=== PATIENT | female | born 1940 | race Caucasian/White ===

== ENCOUNTER → 2016-06-03 | Day surgery (SDC) | payer BC ==
[2016-05-20 08:01] VITALS: Ht 167.6 cm; Wt 77.3 kg
[~2016-06-03] VITALS: Ht 167.6 cm; Wt 77.3 kg
[~2016-06-03] MED LIST: 500ML BSS 0.3ML EPI 1:1000PF IRRIG ONE; ACETAMINOPHEN 325 MG TAB PO PRN; AMT25 PO; AMVISC PLUS 0.8ML SYRINGE INT OCU ONE; ASCO10003 PO; ASPI-589; ATROPINE SULFATE 0.1 MG/ML 5ML SYR IV PRN; BROM0.07 OPL; BSS FLUSH ONE; CALC200T PO; EpHEDrine SULFATE INJ 50 MG/ML AMP IV PRN; EpINEphrine INJ 1MG/ML AMP 1 MG/ML AMP ONE; GARL400T5 PO; LACTATED RINGER'S 1000ML 500 ML IV SCH; LIDOCAINE 3.5% OPH GEL PER APPLICATION CHARGE ONE; LIDOCAINE HCL 1% MPF 2 ML VIAL ONE; MAGNESIUM PO; MIDAZOLAM HCL 1 MG/ML 2ML VIAL ONE; MULT-506 PO; OCUCOAT 1 ML SOLN IO ONE; ONDANSETRON INJ 2 MG/ML 2 ML VIAL IV PRN; POVIDONE-IODINE OP SOLN 30 ML BTL ONE; PRED1SUS3 OPL; PROPARACAINE 0.5% OP SOLN PER DROP CHARGE OPL SCH; SELENIUM PO; TOBRAMYCIN/DEXAMETHASONE OPH OINT PER APPLN CHARGE ONE
[2016-06-03] MEDS: PHENYLEPHRINE HCL 2.5% OP SOLN PER DROP CHARGE OPL SCH ×2 (06:36→06:41)
[2016-06-03] MEDS: TROPICAMIDE 1% OP SOLN PER DROP CHARGE OPL SCH ×2 (06:37→06:42)
[2016-06-03] MEDS: CYCLOPENTOLATE HCL 1% OP SOLN PER DROP CHARGE OPL SCH ×2 (06:38→06:43)
[2016-06-03] MEDS: KETOROLAC 0.5% OP SOLN PER DROP CHARGE OPL SCH ×2 (06:39→06:44)
[2016-06-03] MEDS: GATIFLOXACIN OP SOLN PER DROP CHARGE OPL SCH ×2 (06:40→06:50)
--- NOTE | 2016-06-03 07:05 | History & Physical Bridge - [place] ---
H&P Re-Evaluation Bridge Note: I have examined the patient, reviewed the History & Physical and in the interval since the performance of the History & Physical I have noted the following changes of clinical significance: Diagnosis: Left Cataract Procedure: Left Cataract Removal with Lens Implant No changes noted
[2016-06-03 07:29] VITALS: TEMP 36
--- NOTE | 2016-06-03 07:29 | Discharge Instructions-SurgCtr ---
Discharge Instructions Visit Reason for Visit: Cataract Left Eye Discharge Discharge Diagnosis / Problem: cataract Discharge Goals Goal(s): Improve function Activity Recommendations Activity Limitations: per Instructions/Follow-up section Anesthesia . Post Anesthesia Instructions: If you have had General Anesthesia or IV Sedation: * Do not drive today. * Resume driving when surgeon permits. * Do not make important decisions or sign legal documents today. * Call surgeon for: 1. Temperature elevations greater than 101 degrees F. 2. Uncontrollable pain. 3. Excessive bleeding. 4. Persistent nausea and vomiting. 5. Medication intolerance (nausea, vomiting or rash). * For nausea and vomiting use only clear liquids such as: tea, soda, bouillon until nausea subsides, then gradually increase diet as tolerated. * If you have any concerns or questions, call your surgeon's office. If physician is unavailable and it is an emergency, call 911 or go to the nearest emergency room. . Instructions / Follow-Up Instructions / Follow-Up ACTIVITY RECOMMENDATIONS: * No strenuous lifting, jogging or running for 4 days * No swimming or yard work for 1 week. * Limited bending is permitted, such as putting on shoes. RETURN TO SCHOOL/WORK: No work until seen by physician in office. MEDICATIONS: Resume previous medications unless instructed otherwise by your surgeon. This includes eye drops for glaucoma. Zymaxid/Gatifloxacin (avendano cap) - one drop every 2 hours until bedtime Nevanac/Ilevro/Prolensa/Ketorolac (banks cap) - one drop every 4 hours until bedtime Prednisolone (white/pink cap, SHAKE WELL) - one drop every 2 hours until bedtime Starting tomorrow - all 3 drops every 4 hours until seen in the office Optive drops - as needed for discomfort SPECIAL CARE INSTRUCTIONS: * Wear eyeshield when sleeping, for four nights. * You may wear your own glasses or sunglasses while awake. * You may read or watch TV * You may shower and wash your face, but be gentle around the eye and pat dry. * Blurry vision and mild irritation are normal. * Call office if pain is more severe or vision becomes dark at . FOLLOW UP VISIT: Follow-up with Dr Nazario tomorrow. Diet Recommendations Home Diet: resume previous diet Procedures Procedures Performed: Left Cataract Phacoemulsification With Intraocular Lens Implant Pending Studies Studies pending at discharge: no Medical Emergencies . Who to Call and When: Medical Emergencies: If at any time you feel your situation is an emergency, please call 911 immediately. . Non-Emergent Contact Non-Emergency issues call your: Business Applications Specialist . . "Provider Documentation" section prepared by Diego Nazario.
--- NOTE | 2016-06-03 07:30 | [facility] Operative Report ---
Operative Report 1. PREOPERATIVE DIAGNOSIS: Cataract of the left eye. 2. POSTOPERATIVE DIAGNOSIS: Same. 3. PROCEDURE: Phacoemulsification with intraocular lens implantation of the left eye. SURGEON: Dr. Diego Nazario. ANESTHESIA: Topical Lidocaine gel, 1% Non- Preserved intracameral Lidocaine, and monitored intravenous sedation. INDICATIONS FOR THE PROCEDURE: The patient is a 76 - year-old female with a history of cataract of the left eye causing significant visual impairment. The details of the proposed procedure were explained to the patient who asked appropriate questions and following discussion of all risks, benefits and alternatives agreed to have the procedure done. 4. OPERATION AND FINDINGS: DESCRIPTION OF PROCEDURE: After informed consent was obtained, the patient was brought to the Operating Room at the [facility]. The patient was placed in a supine position and then the left eye was prepped and draped in the usual sterile fashion for intraocular surgery. A drop of topical Lidocaine gel was placed in the operative eye. A wire lid speculum was then placed in the fornices. A corneal paracentesis was then created temporally. The Non-Preserved Lidocaine was then instilled into the anterior chamber. The anterior chamber was then pressurized with viscoelastic. A 2.0 mm clear corneal incision was then created temporally. A cystotome was inserted into the anterior chamber and used to create a tear in the anterior lens capsule. This capsular tear was then used to create a small flap and the flap was dragged in a counterclockwise direction in order to create a continuous curvilinear capsulorrhexis. Hydrodissection was accomplished with balanced salt solution. Phacoemulsification of the lens nucleus was then performed in a standard [id number] technique. The phaco time was 47 seconds with an average power of 15 %. The remaining cortical material was removed using irrigation aspiration. The capsular bag was then filled with viscoelastic. A Bausch & Lomb MI60L +23.5 diopters lens was then loaded into the injector and injected into the capsular bag. The remaining viscoelastic was removed with the irrigation aspiration handpiece. The wound was hydrated and then checked and found to be watertight. The intraocular pressure was checked and found to be adequate. The wire lid speculum was removed and the patient's face was cleaned and dried. TobraDex ointment was placed in the inferior fornix. The patient was discharged to the Recovery Room having tolerated the procedure well. There were no complications. The patient will be seen tomorrow in the office for follow-up. I attest to the content of the Intraoperative Record and any orders documented therein. Any exceptions are noted below.
--- NOTE | 2016-06-03 07:50 | Anesthesia Progress Nt - [facility] ---
Anesthesia Post Op Note Date & Time Jun 03, 2016 at 07:49 Vital Signs Pain Intensity: 0 Vital Signs Past 12 Hours Date Time Temp Pulse Resp B/P Pulse Ox O2 Delivery O2 Flow Rate FiO2 06/03/16 07:29 36.0 70 16 156/84 95 Room Air 06/03/16 06:29 37.0 77 16 148/89 95 Room Air Notes Mental Status: alert / awake / arousable, participated in evaluation Pt Amnestic to Procedure: No Nausea / Vomiting: adequately controlled Pain: adequately controlled Airway Patency, RR, SpO2: stable & adequate BP & HR: stable & adequate Hydration State: stable & adequate Anesthetic Complications: no major complications apparent Non distressing recall as discussed preop
[2016-06-03 07:51] VITALS: BP 169/89; PULSE 77; O2SAT 96
== END | disposition home or self-care (01) ==
LOC: X.SURG 06:15
PROVIDERS: ATTEND Ophthalmology
DX: H26.9 Unspecified cataract (principal); M19.90 Unspecified osteoarthritis, unspecified site; N18.3 Chronic kidney disease, stage 3 (moderate); K21.9 Gastro-esophageal reflux disease without esophagitis; Z85.3 Personal history of malignant neoplasm of breast; Z88.5 Allergy status to narcotic agent; Z90.710 Acquired absence of both cervix and uterus; Z90.12 Acquired absence of left breast and nipple; Z79.82 Long term (current) use of aspirin; Z80.8 Family history of malignant neoplasm of other organs or systems; Z81.8 Family history of other mental and behavioral disorders

== ENCOUNTER → 2016-06-24 | Day surgery (SDC) | payer BC ==
[2016-06-11 14:51] VITALS: Ht 167.6 cm; Wt 77.3 kg
[~2016-06-24] VITALS: Ht 167.6 cm; Wt 77.3 kg
[~2016-06-24] MED LIST changes: -ONDANSETRON INJ 2 MG/ML 2 ML VIAL IV PRN; -PROPARACAINE 0.5% OP SOLN PER DROP CHARGE OPL SCH; +PROPARACAINE 0.5% OP SOLN PER DROP CHARGE OPR SCH
[2016-06-24] MEDS: PHENYLEPHRINE HCL 2.5% OP SOLN PER DROP CHARGE OPR SCH ×2 (09:20→09:25)
[2016-06-24] MEDS: TROPICAMIDE 1% OP SOLN PER DROP CHARGE OPR SCH ×2 (09:21→09:26)
[2016-06-24] MEDS: CYCLOPENTOLATE HCL 1% OP SOLN PER DROP CHARGE OPR SCH ×2 (09:22→09:27)
[2016-06-24] MEDS: KETOROLAC 0.5% OP SOLN PER DROP CHARGE OPR SCH ×2 (09:23→09:28)
[2016-06-24] MEDS: GATIFLOXACIN OP SOLN PER DROP CHARGE OPR SCH ×2 (09:24→09:34)
--- NOTE | 2016-06-24 09:57 | History & Physical Bridge - [place] ---
H&P Re-Evaluation Bridge Note: I have examined the patient, reviewed the History & Physical and in the interval since the performance of the History & Physical I have noted the following changes of clinical significance: No changes noted
--- NOTE | 2016-06-24 10:29 | Discharge Instructions-SurgCtr ---
Discharge Instructions Visit Reason for Visit: Right Cataract Discharge Discharge Diagnosis / Problem: cataract Discharge Goals Goal(s): Improve function Activity Recommendations Activity Limitations: per Instructions/Follow-up section Anesthesia . Post Anesthesia Instructions: If you have had General Anesthesia or IV Sedation: * Do not drive today. * Resume driving when surgeon permits. * Do not make important decisions or sign legal documents today. * Call surgeon for: 1. Temperature elevations greater than 101 degrees F. 2. Uncontrollable pain. 3. Excessive bleeding. 4. Persistent nausea and vomiting. 5. Medication intolerance (nausea, vomiting or rash). * For nausea and vomiting use only clear liquids such as: tea, soda, bouillon until nausea subsides, then gradually increase diet as tolerated. * If you have any concerns or questions, call your surgeon's office. If physician is unavailable and it is an emergency, call 911 or go to the nearest emergency room. . Instructions / Follow-Up Instructions / Follow-Up ACTIVITY RECOMMENDATIONS: * No strenuous lifting, jogging or running for 4 days * No swimming or yard work for 1 week. * Limited bending is permitted, such as putting on shoes. RETURN TO SCHOOL/WORK: No work until seen by physician in office. MEDICATIONS: Resume previous medications unless instructed otherwise by your surgeon. This includes eye drops for glaucoma. Zymaxid/Gatifloxacin (avendano cap) - one drop every 2 hours until bedtime Nevanac/Ilevro/Prolensa/Ketorolac (banks cap) - one drop every 4 hours until bedtime Prednisolone (white/pink cap, SHAKE WELL) - one drop every 2 hours until bedtime Starting tomorrow - all 3 drops every 4 hours until seen in the office Optive drops - as needed for discomfort SPECIAL CARE INSTRUCTIONS: * Wear eyeshield when sleeping, for four nights. * You may wear your own glasses or sunglasses while awake. * You may read or watch TV * You may shower and wash your face, but be gentle around the eye and pat dry. * Blurry vision and mild irritation are normal. * Call office if pain is more severe or vision becomes dark at . FOLLOW UP VISIT: Follow-up with Dr Nazario tomorrow. Diet Recommendations Home Diet: resume previous diet Procedures Procedures Performed: Right Eye Cataract Phacoemulsification With Intraocular Lens Implant Pending Studies Studies pending at discharge: no Medical Emergencies . Who to Call and When: Medical Emergencies: If at any time you feel your situation is an emergency, please call 911 immediately. . Non-Emergent Contact Non-Emergency issues call your: Internal Control Specialist . . "Provider Documentation" section prepared by Diego Nazario.
[2016-06-24 10:30] VITALS: TEMP 36.6
--- NOTE | 2016-06-24 10:30 | [facility] Operative Report ---
Operative Report 1. PREOPERATIVE DIAGNOSIS: Cataract of the right eye. 2. POSTOPERATIVE DIAGNOSIS: Same. 3. PROCEDURE: Phacoemulsification with intraocular lens implantation of the right eye. SURGEON: Dr. Diego Nazario. ANESTHESIA: Topical Lidocaine gel, 1% Non- Preserved intracameral Lidocaine, and monitored intravenous sedation. INDICATIONS FOR THE PROCEDURE: The patient is a 76 - year-old female with a history of cataract of the right eye causing significant visual impairment. The details of the proposed procedure were explained to the patient who asked appropriate questions and following discussion of all risks, benefits and alternatives agreed to have the procedure done. 4. OPERATION AND FINDINGS: DESCRIPTION OF PROCEDURE: After informed consent was obtained, the patient was brought to the Operating Room at the [facility]. The patient was placed in a supine position and then the right eye was prepped and draped in the usual sterile fashion for intraocular surgery. A drop of topical Lidocaine gel was placed in the operative eye. A wire lid speculum was then placed in the fornices. A corneal paracentesis was then created temporally. The Non-Preserved Lidocaine was then instilled into the anterior chamber. The anterior chamber was then pressurized with viscoelastic. A 2.0 mm clear corneal incision was then created temporally. A cystotome was inserted into the anterior chamber and used to create a tear in the anterior lens capsule. This capsular tear was then used to create a small flap and the flap was dragged in a counterclockwise direction in order to create a continuous curvilinear capsulorrhexis. Hydrodissection was accomplished with balanced salt solution. Phacoemulsification of the lens nucleus was then performed in a standard [id number] technique. The phaco time was 46 seconds with an average power of 17 %. The remaining cortical material was removed using irrigation aspiration. The capsular bag was then filled with viscoelastic. A Bausch & Lomb MI60L +23.5 diopters lens was then loaded into the injector and injected into the capsular bag. The remaining viscoelastic was removed with the irrigation aspiration handpiece. The wound was hydrated and then checked and found to be watertight. The intraocular pressure was checked and found to be adequate. The wire lid speculum was removed and the patient's face was cleaned and dried. TobraDex ointment was placed in the inferior fornix. The patient was discharged to the Recovery Room having tolerated the procedure well. There were no complications. The patient will be seen tomorrow in the office for follow-up. I attest to the content of the Intraoperative Record and any orders documented therein. Any exceptions are noted below.
[2016-06-24 10:45] VITALS: BP 160/88; PULSE 74; O2SAT 97
--- NOTE | 2016-06-24 11:08 | Anesthesia Progress Nt - [facility] ---
Anesthesia Post Op Note Date & Time Jun 24, 2016 at 11:07 Vital Signs Pain Intensity: 0 Vital Signs Past 12 Hours Date Time Temp Pulse Resp B/P Pulse Ox O2 Delivery O2 Flow Rate FiO2 06/24/16 10:45 74 16 160/88 97 Room Air 06/24/16 10:30 36.6 76 16 154/90 96 Room Air 06/24/16 09:10 36.8 88 12 137/83 95 Room Air Notes Mental Status: alert / awake / arousable, participated in evaluation Pt Amnestic to Procedure: Yes Nausea / Vomiting: adequately controlled Pain: adequately controlled Airway Patency, RR, SpO2: stable & adequate BP & HR: stable & adequate Hydration State: stable & adequate Anesthetic Complications: no major complications apparent
== END | disposition home or self-care (01) ==
LOC: X.SURG 08:29
PROVIDERS: ATTEND Ophthalmology
DX: H26.9 Unspecified cataract (principal); H54.7 Unspecified visual loss; G43.009 Migraine without aura, not intractable, without status migrainosus; H69.80 Other specified disorders of Eustachian tube, unspecified ear; G63 Polyneuropathy in diseases classified elsewhere; K21.9 Gastro-esophageal reflux disease without esophagitis; N18.3 Chronic kidney disease, stage 3 (moderate); I65.29 Occlusion and stenosis of unspecified carotid artery; Z90.10 Acquired absence of unspecified breast and nipple; Z79.82 Long term (current) use of aspirin

== ENCOUNTER 2018-08-14 18:26 | Inpatient (IN) ==
--- NOTE | 2018-08-14 19:02 | Emergency Department Note ---
Entered by Vj Larry acting as a scribe for Octaviano Millan MD History of Present Illness General Chief complaint: Vertigo Stated complaint: DIZZYNESS Time Seen by Provider: 08/14/18 18:37 Source: patient History of Present Illness Onset (ago): day(s) (this morning at 1000) Location: head Pain Consistency: + constant Quality: + other (dizziness) Associated symptoms: + other (Negative for visual changes, CP, numbness, weakness, heart racing, SOB, dyspnea, abdominal pain, black stool, urinary symptoms, fever, and ear ringing.) The patient is a 78 year old female who presents to the emergency department with complaints of constant dizziness beginning this morning at 1000. The patient states that she was doing yoga this morning when she stood up and became dizzy. She notes that she had a similar episode that happened yesterday. She reports that she felt as though she could not stand or walk without holding the wall. The patient states that it did not feel like the room was spinning. She notes that she went to [facility] urgent care and was told that she had some EKG changes. She denies any visual changes, CP, numbness, weakness, heart racing, SOB, dyspnea, abdominal pain, black stool, urinary symptoms, fever, ear ringing, and recent trauma. She reports that she has a history of breast cancer but does not have a history of diabetes, cardiac disease, strokes, and abdominal bleeding. Home Medications Home Medications Medication Instructions Recorded Confirmed Type amitriptyline 50 mg PO HS 08/14/18 08/14/18 History ascorbic acid (vitamin C) [Vitamin 1,000 mg PO BID 08/14/18 08/14/18 History C] aspirin [Aspir-Low] 81 mg PO HS 08/14/18 08/14/18 History calcium carbonate-vitamin D3 1 tab PO HS 08/14/18 08/14/18 History [Calcium 500 + D (D3)] garlic 0 mg PO HS 08/14/18 08/14/18 History loteprednol etabonate [Lotemax] 1 drp OPB BID 08/14/18 08/14/18 History magnesium oxide 400 mg PO HS 08/14/18 08/14/18 History multivitamin 1 tab PO QAM 08/14/18 08/14/18 History selenium 0 mcg PO DAILY 08/14/18 08/14/18 History Allergies Allergy/AdvReac Type Severity Reaction Status Date / Time bacitracin Allergy Unknown SWELLING Verified 06/24/16 09:06 AT SITE neomycin Allergy Unknown SWELLING Verified 06/24/16 09:06 AT SITE polymyxin B Allergy Unknown SWELLING Verified 06/24/16 09:06 AT SITE morphine AdvReac Unknown HEADACHE Verified 06/24/16 10:30 Past Med/Surg History Medical History Degenerative joint disease (DJD) of hip (Acute 03/31/14) Breast cancer Family History Other No significant family history Social History Preferred Language: Honduran Communication Ability: Effective Paper Machine Back Tender Required: No Beliefs That Will Affect Care: None Current Living Situation: Alone Other Information That Helps Us Care for You: No Feels Safe at Home: Yes Safety Concerns: Feels Safe At This Time Smoking Status: Never smoker Hx Alcohol Use: Yes Hx Substance Use: No Review of Systems See HPI for pertinent positives & negatives. and A total of 10 systems reviewed and were otherwise negative Physical Exam Vital Signs Vital Signs - 24 hr 08/14/18 18:29 08/14/18 19:13 08/14/18 19:48 Temperature 36.5 C Temperature Source Oral Sepsis Recent Fever Within 48 Hours No Sepsis New/Unexplained Change in Mental Status No Sepsis Action Taken by Nursing No Action Required Pulse Rate 81 Pulse Rate [Right Finger] 85 91 H Respiratory Rate 16 18 18 Respiratory Effort / Characteristics Non-Labored Spontaneous Non-Labored Spontaneous Respiratory Depth Normal Normal Respiratory Pattern Blood Pressure 133/71 Blood Pressure [Right Arm] 109/62 186/109 H Blood Pressure Mean 91 Blood Pressure Mean [Right Arm] 77 134 Blood Pressure Position [Right Arm] Pulse Oximetry 97 92 92 Oxygen Delivery Method Room Air 08/14/18 21:05 08/14/18 23:08 08/15/18 00:38 Temperature 36.5 C Temperature Source Oral Sepsis Recent Fever Within 48 Hours Sepsis New/Unexplained Change in Mental Status Sepsis Action Taken by Nursing Pulse Rate Pulse Rate [Right Finger] 83 87 96 H Respiratory Rate 18 16 16 Respiratory Effort / Characteristics Non-Labored Spontaneous Non-Labored Spontaneous Non-Labored Spontaneous Respiratory Depth Normal Normal Normal Respiratory Pattern Regular Regular Blood Pressure Blood Pressure [Right Arm] 178/88 H 169/96 H 159/90 H Blood Pressure Mean Blood Pressure Mean [Right Arm] 118 120 113 Blood Pressure Position [Right Arm] Sitting Sitting Pulse Oximetry 93 93 95 Oxygen Delivery Method Room Air Room Air General: Non-ill appearing 78 year old female in no acute distress. HEENT: Normal cephalic atraumatic. Pupils are equal round and reactive to light. Extraocular movements are intact. Oropharynx is pink with moist mucous membranes. No swelling of the mouth lips or tongue. Neck: Supple with a midline trachea. No meningeal signs or stiffness, no JVD or bruits. No Stridor. Chest: Clear to auscultation bilaterally. No wheezes or rhonchi. No increased work of breathing. Heart: regular rate and rhythm. Abdomen: Soft nontender, nondistended without rebound guarding or rigidity. Extremities: No cyanosis clubbing or edema. No calf tenderness or asymmetry Spine/Back. Non tender to palpation. No CVA tenderness Skin: Good turgor without rashes. Neurologic exam: Cranial nerves two through 12 are intact. Motor and sensation are intact and symmetrical throughout. Finger to nose intact, no tremor, no pronator drift, normal gait, negative Romberg, difficulty with heel to toe gait. Course 1838: Past medical records reviewed. The patient was evaluated in room A10, and a complete history and physical examination were performed. 1932: I reevaluated and updated the patient. She appears comfortable. She just got back from CT. 2017: Upon reevaluation, the patient is stable. I discussed the results and treatment plan with the patient. She verbalizes understanding and agreement. I discussed the patient's case with Alpa Prasad. The patient will be evaluated for further management and care. Consultations Consultation #1: I reviewed the patient's case with Alpa Prasad. He will evaluate the patient for further management. Time: 20:17 Administered Medications Ioversol (Optiray 320 125ml) 121 ml IV ONCE PRN PRN Reason: Interaction Checking Stop: 08/18/18 19:37 Last Admin: 08/14/18 19:39 Dose: 121 ml Documented by: [id number] Discontinued Medications Clopidogrel Bisulfate (Plavix) 75 mg PO NOW ONE Stop: 08/14/18 21:12 Last Admin: 08/14/18 21:21 Dose: 75 mg Documented by: [id number] Potassium Chloride (Klor-Con M20) 20 meq PO NOW STA Stop: 08/14/18 20:54 Last Admin: 08/14/18 21:21 Dose: 20 meq Documented by: [id number] Medical Decision Making Differential Diagnosis Differential diagnoses include: CVA, orthostatic hypotension, electrolyte/metabolic abnormalities, and cardiac process. Medical Records Attestation: I reviewed the patient's medical records. Home Medications Current Medication List: was personally reviewed by me Laboratory Data Attestation: I reviewed the patient's lab results. Result diagrams: 08/14/18 18:40 08/14/18 18:40 Lab Results 08/14/18 08/14/18 08/14/18 Range/Units 18:40 18:40 18:40 WBC 6.60 (4.8-10.8) K/uL RBC 4.56 (4.2-5.4) M/uL Hgb 14.5 (12.0-16.0) g/dL POC Hgb (12.0-16.0) g/dl Hct 41.7 (37-47) % POC Hct (37-47) % MCV 91.4 (80-100) fL MCH 31.8 (25-34) pg MCHC 34.8 (32-36) g/dL RDW Std Deviation 43.5 (36.4-46.3) fL RDW Coeff of Frannie 13.0 (11.5-14.5) % Plt Count 290 (130-400) K/uL MPV 10.4 (7.4-10.4) fL Immature Gran % (Auto) 0.2 % Neut % (Auto) 76.0 % Lymph % (Auto) 14.4 % [place] % (Auto) 8.5 % Eos % (Auto) 0.6 % Baso % (Auto) 0.3 % Immature Gran # (Auto) 0.01 (0.00-0.02) K/uL Neut # (Auto) 5.02 (1.4-6.5) K/uL Lymph # (Auto) 0.95 L (1.2-3.4) K/uL [place] # (Auto) 0.56 (0.11-0.59) K/uL Eos # (Auto) 0.04 (0-0.5) K/uL Baso # (Auto) 0.02 (0-0.2) K/uL PT 9.9 (9.0-12.0) Seconds INR 1.0 (0.9-1.1) APTT 23.3 (21.0-31.0) Seconds PTT Ratio 0.9 POC Sodium (135-144) mEq/L Sodium 141 (136-145) mmol/L POC Potassium (3.3-5.0) mEq/L Potassium 3.4 L (3.5-5.1) mmol/L POC Chloride (101-112) mEq/L Chloride 104 (98-107) mmol/L Carbon Dioxide 31 (21-32) mmol/L POC Total CO2 (24-31) mEq/l Anion Gap 6.0 (3-11) POC Anion Gap (16-25) mmol/L POC BUN (7-18) mg/dl BUN 10 (7-18) mg/dl Creatinine 0.95 (0.6-1.2) mg/dl POC Creatinine (0.6-1.3) mg/dl Est Cr Clr Drug Dosing Not Reportable Est GFR ( Amer) 67.0 Est GFR (Non-Af Amer) 57.8 BUN/Creatinine Ratio 10.9 (10-20) Glucose 117 H (70-99) mg/dl POC Glucose (70-99) POC Glucose (other) (70-99) mg/dl Calcium 9.1 (8.5-10.1) mg/dl POC Ioniz Calcium Aaron (1.12-1.32) mmol/l Magnesium 2.3 (1.8-2.4) mg/dl Total Bilirubin 0.6 (0.2-1) mg/dl AST 26 (15-37) U/L ALT 37 (12-78) U/L Alkaline Phosphatase 103 (45-117) U/L Troponin I < 0.015 (0-0.045) ng/ml Total Protein 7.6 (6.4-8.2) gm/dl Albumin 3.8 (3.4-5.0) gm/dl Globulin 3.8 (2.5-4.0) gm/dl Albumin/Globulin Ratio 1.0 (0.9-2) TSH 2.070 (0.300-4.500) uIu/ml 08/14/18 08/14/18 08/14/18 Range/Units 18:40 18:55 19:01 WBC (4.8-10.8) K/uL RBC (4.2-5.4) M/uL Hgb (12.0-16.0) g/dL POC Hgb 15.0 (12.0-16.0) g/dl Hct (37-47) % POC Hct 44 (37-47) % MCV (80-100) fL MCH (25-34) pg MCHC (32-36) g/dL RDW Std Deviation (36.4-46.3) fL RDW Coeff of Frannie (11.5-14.5) % Plt Count (130-400) K/uL MPV (7.4-10.4) fL Immature Gran % (Auto) % Neut % (Auto) % Lymph % (Auto) % [place] % (Auto) % Eos % (Auto) % Baso % (Auto) % Immature Gran # (Auto) (0.00-0.02) K/uL Neut # (Auto) (1.4-6.5) K/uL Lymph # (Auto) (1.2-3.4) K/uL [place] # (Auto) (0.11-0.59) K/uL Eos # (Auto) (0-0.5) K/uL Baso # (Auto) (0-0.2) K/uL PT (9.0-12.0) Seconds INR (0.9-1.1) APTT (21.0-31.0) Seconds PTT Ratio POC Sodium 141 (135-144) mEq/L Sodium (136-145) mmol/L POC Potassium 3.5 (3.3-5.0) mEq/L Potassium (3.5-5.1) mmol/L POC Chloride 99 L (101-112) mEq/L Chloride (98-107) mmol/L Carbon Dioxide (21-32) mmol/L POC Total CO2 29 (24-31) mEq/l Anion Gap (3-11) POC Anion Gap 17.0 (16-25) mmol/L POC BUN 10 (7-18) mg/dl BUN (7-18) mg/dl Creatinine (0.6-1.2) mg/dl POC Creatinine 0.8 (0.6-1.3) mg/dl Est Cr Clr Drug Dosing Est GFR ( Amer) Est GFR (Non-Af Amer) BUN/Creatinine Ratio (10-20) Glucose (70-99) mg/dl POC Glucose 108 H (70-99) POC Glucose (other) 119 H (70-99) mg/dl Calcium (8.5-10.1) mg/dl POC Ioniz Calcium Aaron 1.18 (1.12-1.32) mmol/l Magnesium (1.8-2.4) mg/dl Total Bilirubin (0.2-1) mg/dl AST (15-37) U/L ALT (12-78) U/L Alkaline Phosphatase (45-117) U/L Troponin I (0-0.045) ng/ml Total Protein (6.4-8.2) gm/dl Albumin (3.4-5.0) gm/dl Globulin (2.5-4.0) gm/dl Albumin/Globulin Ratio (0.9-2) TSH Cancelled (0.300-4.500) uIu/ml Imaging Data Radiologist's Impression: Radiology results as stated below per my review and the radiologist's interpretation: CT ANGIOGRAM OF THE BRAIN COMBO; CT ANGIOGRAM OF THE NECK FINDINGS: Brain parenchyma: There is age-related involutional change noting mild subcortical and periventricular microangiopathic disease. There is no hemorrhage, mass effect, or evidence of acute territorial ischemia by CT criteria. There is no evidence of enhancing mass lesion on the angiogram phase i mages. The ventricles, sulci, and cisterns are prominent secondary to involutional change. Cedeno-white matter differentiation is preserved. No extra- axial fluid collection is seen. Thoracic aorta: There is atherosclerotic calcification of the thoracic aorta. Visualized portions of the thoracic aorta are normal in caliber. The aortic arch demonstrates standard 3-vessel anatomy. Right carotid arterial system: The right common carotid artery is widely patent, as are the right internal and external carotid arteries. Mild atherosclerotic plaque is noted in the carotid bulb. There is tortuosity of the distal right internal carotid artery. Left carotid arterial system: The left common carotid artery is widely patent, as are the left internal and external carotid arteries. There is tortuosity of the distal left internal carotid artery. Vertebral arteries: Widely patent bilaterally and codominant. Subclavian arteries: Widely patent bilaterally. Intracranial vasculature: There is mild atherosclerotic calcification of the cavernous carotid arteries. There is origin of the right posterior cerebral artery. The internal carotid arteries are patent at the skull base. There is approximately 50% focal stenosis of the M1 segment of the right middle cerebral artery. This is best seen on axial image #103. The anterior and middle cerebral arteries are otherwise patent bilaterally. The vertebrobasilar system and posterior cerebral arteries are widely patent. The vertebral arteries are c odominant. There is no aneurysm or focal vessel cut off seen throughout the intracranial circulation. Jugular veins: Widely patent bilaterally. Dural sinuses: Patent. Lung apices: Apical scarring is noted. Imaged upper lobe lung parenchyma is otherwise clear. Soft tissues: The visualized pharyngeal soft tissues are normal in appearance noting angiographic phase technique. The oropharyngeal airway appears widely patent. The salivary and thyroid glands are normal in appearance. No cervical lymphadenopathy is seen. Skeletal structures: The skeletal structures are osteopenic. The calvarium ap pears intact. The cervical spine is maintained noting multilevel spondylosis. No lytic or blastic lesion is seen. Bone islands are noted in the bodies of T4 and T5. Orbits: The bony orbits are intact. Orbital contents are normal in appearance noting bilateral ocular lens implants. Sinuses and mastoids: There is trace mucosal thickening within the right maxillary antrum. The remaining paranasal sinuses are clear. The mastoid air cells are well pneumatized. IMPRESSION: 1. There is no hemorrhage, mass effect, or evidence of acute territorial ischemia by CT criteria. 2. 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 3. Otherwise unremarkable CT angiogram of the brain. 4. Unremarkable CT angiogram of the neck. Electronically signed by: Perez Mace M.D. 08/14/2018 7:52 PM ECG Data Attestation: I personally reviewed and interpreted this ECG as follows: Indication: weakness Rate (beats per minute): 88 Rhythm: normal sinus Findings: + RBBB; no PAC and no PVC Comparison ECG Date: from (02/21/2018) Change: the following changes noted (QRS is slightly longer) Additional Comments: Left anterior fascicular block. Blood Pressure Blood Pressure Findings: Elevated blood pressure Blood Pressure Disposition: further management by hospitalist [facility] Narrative This patient comes in as described above she felt dizzy after standing up this morning around 8:00 while doing some yoga. She felt off balance like she had trouble walking and needed to hold onto things. This has gotten significantly better. she has no symptoms at rest but when she gets up she still does feel little off balance. There has been no spinning or vertigo. her neurologic exam is normal with exception of she has difficulty doing heel-to-toe gait. She has had no fall or trauma no chest pain or shortness of breath. no fever chills or recent illness. IV access established and blood work was obtained. I did use the stroke order set as there is concern for possible neurologic process. She is well outside the TPA window and is approximately 11 hours out from her symptoms plus they have gotten significantly better. I did order CAT scan with CT of the head and neck. She was hydrated with IV normal saline. CAT scan/CT of the head and neck do not show any definite acute abnormalities she does have a stenosis of 1 of the branches of MCA that is 50%. She has no definite acute EKG changes she has no chest pain or palpitations. Her troponin is not elevated. Given my concern for her ambulatory function I do think she needs to be admitted/observed have a full neurologic workup and further evaluation of consult Dr. Phillips to see her in the ER for these measures. Impression & Plan Ataxia, Dizziness Discharge Plan Visit Data *Final* Discharge Date/Time: 08/14/18 23:21 Chief Complaint: Vertigo Stated Complaint: DIZZYNESS ED Provider: Octaviano Millan Discharge Problem: Ataxia, Dizziness Patient Disposition: Admitted As Inpatient Discharge Instructions Interventions: ED Discharge Assessment Last Done: 08/14/18 23:21 The scribe's documentation has been prepared under my direction and personally reviewed by me in its entirety. I confirm that the note above accurately reflects all work, treatment, procedures, and medical decision making performed by me.
[2018-08-14 19:05] LABS: Basophils # (auto) 0.02 K/uL (0-0.2); Basophils % (auto) 0.3 %; Eosinophils # (auto) 0.04 K/uL (0-0.5); Eosinophils % (auto) 0.6 %; Hematocrit (blood only) 41.7 % (37-47); Hemoglobin 14.5 g/dL (12.0-16.0); Immature Granulocytes # (auto) 0.01 K/uL (0.00-0.02); Immature Granulocytes % (auto) 0.2 %; Lymphocytes # (auto) 0.95 K/uL (1.2-3.4); Lymphocytes % (auto) 14.4 %; Mean Corpuscular Hgb Conc 34.8 g/dL (32-36); Mean Corpuscular Volume 91.4 fL (80-100); Mean Platelet Volume 10.4 fL (7.4-10.4); Monocytes # (auto) 0.56 K/uL (0.11-0.59); Monocytes % (auto) 8.5 %; Neutrophils # (auto) 5.02 K/uL (1.4-6.5); Platelet Count 290 K/uL (130-400); RDW Standard Deviation 43.5 fL (36.4-46.3); Red Blood Count 4.56 M/uL (4.2-5.4)
[2018-08-14 19:13] LABS: Alanine Aminotransferase 37 U/L (12-78); Albumin Level 3.8 gm/dl (3.4-5.0); Aspartate Aminotransferase 26 U/L (15-37); BUN Creatinine Ratio 10.9 (10-20); Blood Urea Nitrogen 10 mg/dl (7-18); Calcium 9.1 mg/dl (8.5-10.1); Carbon Dioxide 31 mmol/L (21-32); Chloride 104 mmol/L (98-107); Est GFR (Non-African American) 57.8; Glucose 117 mg/dl (70-99); Magnesium 2.3 mg/dl (1.8-2.4); Potassium 3.4 mmol/L (3.5-5.1); Sodium 141 mmol/L (136-145)
[2018-08-14 19:15] LABS: iSTAT Creatinine 0.8 mg/dl (0.6-1.3); iSTAT Ionized Calcium 1.18 mmol/l (1.12-1.32); iSTAT Potassium 3.5 mEq/L (3.3-5.0)
[2018-08-14 19:18] LABS: Alkaline Phosphatase 103 U/L (45-117); Bilirubin,Total 0.6 mg/dl (0.2-1); Globulin 3.8 gm/dl (2.5-4.0); Partial Thromboplastin Ratio 0.9; Partial Thromboplastin Time 23.3 Seconds (21.0-31.0); Prothrombin Time 9.9 Seconds (9.0-12.0); Total Protein 7.6 gm/dl (6.4-8.2); Troponin I < 0.015 ng/ml (0-0.045)
[2018-08-14] MEDS ORDERED: OPTIRAY 320 125ml IV PRN (19:38)
--- NOTE | 2018-08-14 19:54 | CT Scan Report ---
CT ANGIOGRAM OF THE BRAIN COMBO; CT ANGIOGRAM OF THE NECK CLINICAL HISTORY: Ataxia. Dizziness. COMPARISON STUDY: No priors. TECHNIQUE: Unenhanced axial CT scan of the brain is performed. Subsequently, following the IV adminis tration of 121 of Optiray 320, CT angiogram of the head and neck was performed from the aortic arch t o the vertex. Images are reviewed in the axial, sagittal, and coronal planes. 3-D MIPS images are cre ated and assessed. IV contrast was administered without complication. All measurements were calculate d based on NASCET criteria. A dose lowering technique was utilized adhering to the principles of ALA RA. CT DOSE: 1247.47 mGy.cm FINDINGS: Brain parenchyma: There is age-related involutional change noting mild subcortical and periventricula r microangiopathic disease. There is no hemorrhage, mass effect, or evidence of acute territorial isc hemia by CT criteria. There is no evidence of enhancing mass lesion on the angiogram phase images. Th e ventricles, sulci, and cisterns are prominent secondary to involutional change. Cedeno-white matter d ifferentiation is preserved. No extra-axial fluid collection is seen. Thoracic aorta: There is atherosclerotic calcification of the thoracic aorta. Visualized portions of the thoracic aorta are normal in caliber. The aortic arch demonstrates standard 3-vessel anatomy. Right carotid arterial system: The right common carotid artery is widely patent, as are the right int ernal and external carotid arteries. Mild atherosclerotic plaque is noted in the carotid bulb. There is tortuosity of the distal right internal carotid artery. Left carotid arterial system: The left common carotid artery is widely patent, as are the left internal medicine hospitalist al and external carotid arteries. There is tortuosity of the distal left internal carotid artery. Vertebral arteries: Widely patent bilaterally and codominant. Subclavian arteries: Widely patent bilaterally. Intracranial vasculature: There is mild atherosclerotic calcification of the cavernous carotid arteri es. There is origin of the right posterior cerebral artery. The internal carotid arteries are p atent at the skull base. There is approximately 50% focal stenosis of the M1 segment of the right mid dle cerebral artery. This is best seen on axial image #103. The anterior and middle cerebral arteries are otherwise patent bilaterally. The vertebrobasilar system and posterior cerebral arteries are wid radha patent. The vertebral arteries are codominant. There is no aneurysm or focal vessel cut off seen throughout the intracranial circulation. Jugular veins: Widely patent bilaterally. Dural sinuses: Patent. Lung apices: Apical scarring is noted. Imaged upper lobe lung parenchyma is otherwise clear. Soft tissues: The visualized pharyngeal soft tissues are normal in appearance noting angiographic pha se technique. The oropharyngeal airway appears widely patent. The salivary and thyroid glands are nor mal in appearance. No cervical lymphadenopathy is seen. Skeletal structures: The skeletal structures are osteopenic. The calvarium appears intact. The cervic al spine is maintained noting multilevel spondylosis. No lytic or blastic lesion is seen. Bone island s are noted in the bodies of T4 and T5. Orbits: The bony orbits are intact. Orbital contents are normal in appearance noting bilateral ocular lens implants. Sinuses and mastoids: There is trace mucosal thickening within the right maxillary antrum. The remain ing paranasal sinuses are clear. The mastoid air cells are well pneumatized. IMPRESSION: 1. There is no hemorrhage, mass effect, or evidence of acute territorial ischemia by CT criteria. 2. 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 3. Otherwise unremarkable CT angiogram of the brain. 4. Unremarkable CT angiogram of the neck. Electronically signed by: Perez Mace M.D. 08/14/2018 7:52 PM
[2018-08-14] MEDS ORDERED: POTASSIUM CHLORIDE 20 MEQ TABCR PO STA (20:53)
[2018-08-14] MEDS ORDERED: CLOPIDOGREL BISULFATE 75 MG TAB PO ONE (21:11)
[2018-08-14] MEDS ORDERED: LISINOPRIL 2.5 MG TAB PO ONE (21:15)
--- NOTE | 2018-08-14 22:50 | History & Physical Report ---
Date of Service August 14, 2018 Assessment & Plan (1) Imbalance: Gait imbalance Rule out posterior CVA HTN, elevated secondary to cerebral ischemia No previous diagnosis of HTN BP elevation possibly chronic given LVH on EKG breast cancer left status post surgery, chemoradiation endometrial hyperplasia status post hysterectomy hyperlipidemia as per records PVD as per records Prediabetes as per records OBS Medical telemetry Neurochecks Add Plavix to aspirin for possible aspirin failure MRI/MRA brain RE gait imbalance permissive hypertension until acute stroke ruled out Initiate low-dose lisinopril if SBP greater than 180 Neurology consult RE gait imbalance PT OT eval Update hemoglobin A1c DVT prophylaxis. Lovenox subcu Full code History of Present Illness Chief Complaint: Dizziness Primary Care Provider: Apolonia Cole MD History obtained from patient, family, and records. Medical history significant for breast cancer left status post surgery, chemoradiation, endometrial hyperplasia status post hysterectomy, hyperlipidemia, PVD, GERD as per records. This morning patient noted dizziness symptoms described as feeling imbalanced after doing yoga, no chest pain, no S OB. Short-lived episode yesterday.No chest pain, no S OB, no headache. 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, Allergies Allergy/AdvReac Type Severity Reaction Status Date / Time bacitracin Allergy Unknown SWELLING Verified 06/24/16 09:06 AT SITE neomycin Allergy Unknown SWELLING Verified 06/24/16 09:06 AT SITE polymyxin B Allergy Unknown SWELLING Verified 06/24/16 09:06 AT SITE morphine AdvReac Unknown HEADACHE Verified 06/24/16 10:30 Home Medications Home Medications Medication Instructions Recorded Confirmed Type amitriptyline 50 mg PO HS 08/14/18 08/14/18 History ascorbic acid (vitamin C) [Vitamin 1,000 mg PO BID 08/14/18 08/14/18 History C] aspirin [Aspir-Low] 81 mg PO HS 08/14/18 08/14/18 History calcium carbonate-vitamin D3 1 tab PO HS 08/14/18 08/14/18 History [Calcium 500 + D (D3)] garlic 0 mg PO HS 08/14/18 08/14/18 History loteprednol etabonate [Lotemax] 1 drp OPB BID 08/14/18 08/14/18 History magnesium oxide 400 mg PO HS 08/14/18 08/14/18 History multivitamin 1 tab PO QAM 08/14/18 08/14/18 History selenium 0 mcg PO DAILY 08/14/18 08/14/18 History Past Med/Surg History Medical History Degenerative joint disease (DJD) of hip (Acute 03/31/14) Breast cancer Family History Other No significant family history Social History Communication Ability: Effective Beliefs That Will Affect Care: None Current Living Situation: Alone Other Information That Helps Us Care for You: No Feels Safe at Home: Yes Safety Concerns: Feels Safe At This Time Smoking Status: Never smoker Hx Alcohol Use: Yes Hx Substance Use: No Review of Systems As per HPI, all 10 systems reviewed, all other ROS negative Physical Exam Vital Signs (Past 24 Hours): Last Vital Signs Temp 36.5 C 08/14/18 18:29 Pulse 83 08/14/18 21:05 Resp 18 08/14/18 21:05 BP 178/88 H 08/14/18 21:05 Pulse Ox 93 08/14/18 21:05 Physical Exam: GENERAL: Comfortable, pleasant, looks younger for stated age, no respiratory distress SKIN: Normal color, warm HEENT: [place] palpebral conjunctivae, no ptosis, dry buccal mucosa NECK : Supple, no tenderness CHEST : CTA, no tenderness HEART : RRR, no obvious murmurs ABDOMEN: Some distention, nontender EXTREMITIES : No LE swelling/tenderness, no other conspicuous deformities noted NEUROLOGIC : Coherent, no facial asymmetry, gait and stance not assessed Results & Data Laboratory Results Laboratory Results WBC 6.60 K/uL (4.8-10.8) 08/14/18 18:40 RBC 4.56 M/uL (4.2-5.4) 08/14/18 18:40 Hgb 14.5 g/dL (12.0-16.0) 08/14/18 18:40 POC Hgb 15.0 g/dl (12.0-16.0) 08/14/18 19:01 Hct 41.7 % (37-47) 08/14/18 18:40 POC Hct 44 % (37-47) 08/14/18 19:01 MCV 91.4 fL (80-100) 08/14/18 18:40 MCH 31.8 pg (25-34) 08/14/18 18:40 MCHC 34.8 g/dL (32-36) 08/14/18 18:40 RDW Std Deviation 43.5 fL (36.4-46.3) 08/14/18 18:40 RDW Coeff of Frannie 13.0 % (11.5-14.5) 08/14/18 18:40 Plt Count 290 K/uL (130-400) 08/14/18 18:40 MPV 10.4 fL (7.4-10.4) 08/14/18 18:40 Immature Gran % (Auto) 0.2 % 08/14/18 18:40 Neut % (Auto) 76.0 % 08/14/18 18:40 Lymph % (Auto) 14.4 % 08/14/18 18:40 Beckham % (Auto) 8.5 % 08/14/18 18:40 Eos % (Auto) 0.6 % 08/14/18 18:40 Baso % (Auto) 0.3 % 08/14/18 18:40 Immature Gran # (Auto) 0.01 K/uL (0.00-0.02) 08/14/18 18:40 Neut # (Auto) 5.02 K/uL (1.4-6.5) 08/14/18 18:40 Lymph # (Auto) 0.95 K/uL (1.2-3.4) L 08/14/18 18:40 Beckham # (Auto) 0.56 K/uL (0.11-0.59) 08/14/18 18:40 Eos # (Auto) 0.04 K/uL (0-0.5) 08/14/18 18:40 Baso # (Auto) 0.02 K/uL (0-0.2) 08/14/18 18:40 PT 9.9 Seconds (9.0-12.0) 08/14/18 18:40 INR 1.0 (0.9-1.1) 08/14/18 18:40 APTT 23.3 Seconds (21.0-31.0) 08/14/18 18:40 PTT Ratio 0.9 08/14/18 18:40 POC Sodium 141 mEq/L (135-144) 08/14/18 19:01 Sodium 141 mmol/L (136-145) 08/14/18 18:40 POC Potassium 3.5 mEq/L (3.3-5.0) 08/14/18 19:01 Potassium 3.4 mmol/L (3.5-5.1) L 08/14/18 18:40 POC Chloride 99 mEq/L (101-112) L 08/14/18 19:01 Chloride 104 mmol/L (98-107) 08/14/18 18:40 Carbon Dioxide 31 mmol/L (21-32) 08/14/18 18:40 POC Total CO2 29 mEq/l (24-31) 08/14/18 19:01 Anion Gap 6.0 (3-11) 08/14/18 18:40 POC Anion Gap 17.0 mmol/L (16-25) 08/14/18 19:01 POC BUN 10 mg/dl (7-18) 08/14/18 19:01 BUN 10 mg/dl (7-18) 08/14/18 18:40 Creatinine 0.95 mg/dl (0.6-1.2) 08/14/18 18:40 POC Creatinine 0.8 mg/dl (0.6-1.3) 08/14/18 19:01 Est Cr Clr Drug Dosing Not Reportable 08/14/18 18:40 Est GFR ( Amer) 67.0 08/14/18 18:40 Est GFR (Non-Af Amer) 57.8 08/14/18 18:40 BUN/Creatinine Ratio 10.9 (10-20) 08/14/18 18:40 Glucose 117 mg/dl (70-99) H 08/14/18 18:40 POC Glucose 108 (70-99) H 08/14/18 18:55 POC Glucose (other) 119 mg/dl (70-99) H 08/14/18 19:01 Calcium 9.1 mg/dl (8.5-10.1) 08/14/18 18:40 POC Ioniz Calcium Aaron 1.18 mmol/l (1.12-1.32) 08/14/18 19:01 Magnesium 2.3 mg/dl (1.8-2.4) 08/14/18 18:40 Total Bilirubin 0.6 mg/dl (0.2-1) 08/14/18 18:40 AST 26 U/L (15-37) 08/14/18 18:40 ALT 37 U/L (12-78) 08/14/18 18:40 Alkaline Phosphatase 103 U/L (45-117) 08/14/18 18:40 Troponin I < 0.015 ng/ml (0-0.045) 08/14/18 18:40 Total Protein 7.6 gm/dl (6.4-8.2) 08/14/18 18:40 Albumin 3.8 gm/dl (3.4-5.0) 08/14/18 18:40 Globulin 3.8 gm/dl (2.5-4.0) 08/14/18 18:40 Albumin/Globulin Ratio 1.0 (0.9-2) 08/14/18 18:40 TSH 2.070 uIu/ml (0.300-4.500) 08/14/18 18:[address] angios head and neck: 1. There is no hemorrhage, mass effect, or evidence of acute territorial ischemia by CT criteria. 2. 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 3. Otherwise unremarkable CT angiogram of the brain. 4. Unremarkable CT angiogram of the neck. EKG as per my interpretation: Rate 90, LAD, LAFB, LVH
[2018-08-14] MEDS ORDERED: TRAMADOL HCL 50 MG TABLET PO PRN (22:54)
[2018-08-14] MEDS ORDERED: PROCHLORPERAZINE 5 MG in SYRINGE 4 ML IV PRN (22:54)
[2018-08-14] MEDS ORDERED: LORazepam 0.25 MG/0.5 ML VIAL IV PRN (22:54)
[2018-08-15] MEDS ORDERED: LACTATED RINGER'S 1,000 ML IV ONE (01:00)
[2018-08-15] MEDS: LOTEMAX~ORDER AWAITING ACTION SCH ×3 (01:46→15:35)
[2018-08-15] MEDS ORDERED: AMITRIPTYLINE HCL 25 MG TAB PO SCH (02:00)
[2018-08-15] MEDS ORDERED: LISINOPRIL 2.5 MG TAB PO SCH (05:30)
[2018-08-15 07:12] LABS: Basophils # (auto) 0.02 K/uL (0-0.2); Basophils % (auto) 0.3 %; Eosinophils % (auto) 3.1 %; Hematocrit (blood only) 41.6 % (37-47); Hemoglobin 14.5 g/dL (12.0-16.0); Immature Granulocytes # (auto) 0.01 K/uL (0.00-0.02); Immature Granulocytes % (auto) 0.2 %; Lymphocytes # (auto) 1.95 K/uL (1.2-3.4); Lymphocytes % (auto) 30.6 %; Mean Corpuscular Hgb Conc 34.9 g/dL (32-36); Mean Corpuscular Volume 91.4 fL (80-100); Mean Platelet Volume 10.5 fL (7.4-10.4); Monocytes % (auto) 12.5 %; Neutrophils % (auto) 53.3 %; Platelet Count 284 K/uL (130-400); RDW Standard Deviation 43.2 fL (36.4-46.3); Red Blood Count 4.55 M/uL (4.2-5.4); White Blood Count 6.38 K/uL (4.8-10.8)
[2018-08-15 07:38] LABS: BUN Creatinine Ratio 12.2 (10-20); Calcium 8.5 mg/dl (8.5-10.1); Creatinine Clr Calc Pharmacy 61.4 ml/min; Est GFR (African American) 81.2; Est GFR (Non-African American) 70.1; Potassium 3.1 mmol/L (3.5-5.1)
[2018-08-15] MEDS ORDERED: POTASSIUM CHLORIDE 20 MEQ TABCR PO STA (08:44)
[2018-08-15] MEDS ORDERED: ENOXAPARIN INJ 30 MG/0.3 ML SYR SQ SCH (09:00)
[2018-08-15] MEDS ORDERED: MULTIVITAMIN TAB PO SCH (09:00)
[2018-08-15] MEDS ORDERED: CLOPIDOGREL BISULFATE 75 MG TAB PO SCH (09:00)
--- NOTE | 2018-08-15 12:07 | Neurology Consultation ---
Date of Consultation August 15, 2018 Acute Vestibular Syndrome - Improved HTN Breast cancer left status post surgery /chemoradiation Endometrial hyperplasia status post hysterectomy GERD Insulin Resistance A 78 year old woman on ASA 81 mg daily presenting with acute vestibular syndrome. CTA head and neck performed in the ED showed intracranial atherosclerosis (50% right M1 stenosis). No evidence of acute stroke or hemorrhage. MRI brain shows chronic microvacular ischemic changes. MRA shows right MCA stenosis (50%) Neurology consulted for concern for posterior circulatio stroke. - Patient reporting feeling much better. Denies vertigo. Up walking to bathroom without difficulty. Non focal examine. No ataxia with finger to nose or heel to desai. - Recommend to continue current ASA 81 mg daily and start low dose Lipitor 20 mg daily for intcranial atherosclerois. - Suspect symptoms were like peripheral . - PT/OT Pending Ok to discharge to home. Patient can follow up with PCP on discharge. History of Present Illness Attending Physician: Gema Ennis MD HPI: A 78 year old woman who presents to the emergency department on 08/14/2018 with dizziness beginning this morning at 1000. The patient states that she was doing yoga this morning when she stood up and became dizzy. She notes that she had a similar episode that happened yesterday. Dizziness described as disequilibrium and patient could not walk without holding wall. She denies vertigo. Denies ear symptoms. Denies similar episodes in the past. She reports feeling much better today and hoping to go home. She is on ASA 81 mg daily at home. Denies speech problems. Denies weakness or numbness. No history of stroke. Allergies Allergy/AdvReac Type Severity Reaction Status Date / Time bacitracin Allergy Unknown SWELLING Verified 06/24/16 09:06 AT SITE neomycin Allergy Unknown SWELLING Verified 06/24/16 09:06 AT SITE polymyxin B Allergy Unknown SWELLING Verified 06/24/16 09:06 AT SITE morphine AdvReac Unknown HEADACHE Verified 06/24/16 10:30 Home Medications Home Medications Medication Instructions Recorded Confirmed Type amitriptyline 50 mg PO HS 08/14/18 08/14/18 History ascorbic acid (vitamin C) [Vitamin 1,000 mg PO BID 08/14/18 08/14/18 History C] aspirin [Aspir-Low] 81 mg PO HS 08/14/18 08/14/18 History calcium carbonate-vitamin D3 1 tab PO HS 08/14/18 08/14/18 History [Calcium 500 + D (D3)] garlic 0 mg PO HS 08/14/18 08/14/18 History loteprednol etabonate [Lotemax] 1 drp OPB BID 08/14/18 08/14/18 History magnesium oxide 400 mg PO HS 08/14/18 08/14/18 History multivitamin 1 tab PO QAM 08/14/18 08/14/18 History selenium 0 mcg PO DAILY 08/14/18 08/14/18 History Patient History Medical History Degenerative joint disease (DJD) of hip (Acute 03/31/14) Breast cancer Family History Other No significant family history Social History Communication Ability: Effective Beliefs That Will Affect Care: None Current Living Situation: Alone Other Information That Helps Us Care for You: No Feels Safe at Home: Yes Safety Concerns: Feels Safe At This Time Smoking Status: Never smoker Hx Alcohol Use: Yes Hx Substance Use: No Physical Exam Vital Signs (Past 24 Hours): Last Vital Signs Temp 36.6 C 08/15/18 11:37 Pulse 87 08/15/18 11:37 Resp 18 08/15/18 07:29 BP 104/65 08/15/18 11:37 Pulse Ox 93 08/15/18 11:37 Physical Exam: EXAM: Constitutional: appearance normally developed, well nourished and non-obese Head and Face: normocephalic and atraumatic Eyes: normal lids, normal conjunctiva Neck: supple Respiratory: normal effort Cardiovascular: normal pulses Abdomen: non distended Skin: no rashes, lesions, or ulcers noted Psychiatric: normal judgement and insight, normal mood and normal affect NEUROLOGIC EXAMINATION: Appearance: no acute distress Orientation: awake, alert and oriented x 3 Mental Status: alert Memory: Good Attention: normal Knowledge: appropriate Language: no aphasia Speech: no dysarthria Cranial Nerves: CN 2 - no visual defect on confrontation and pupils round, equal, reactive to light CN 3, 4, 6 - extra-ocular movements intact and no nystagmus CN 5 - facial sensation intact CN 7 - no facial asymmetry CN 8 - intact hearing CN 9, 10 - palate symmetric CN 11 - good shoulder shrug CN 12 - tongue midline Gait: deferred Coordination: no ataxia with finger to nose testing and heel to desai testing Sensory: intact and symmetric to light touch Muscle Tone: normal Muscle exam: 5/5 throughout Reflexes: No clonus, toes down going, Negative little Results & Data Diagnostic Findings CTA head and neck: 1. There is no hemorrhage, mass effect, or evidence of acute territorial ischemia by CT criteria. 2. 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 3. Otherwise unremarkable CT angiogram of the brain. 4. Unremarkable CT angiogram of the neck. MRI brain: 1. No acute intracranial findings 2. No evidence of acute or subacute infarction 3. No evidence of intracranial mass on this noncontrast study 4. Foci of increased T2 signal within the white matter likely on a microvascular ischemic basis.
--- NOTE | 2018-08-15 12:22 | Magnetic Resonance Report ---
MR ANGIOGRAPHY OF THE [place] OF [place] NO CONTRAST CLINICAL HISTORY: Ataxia, dizziness. ABNORMAL CT ANGIOGRAPHY. COMPARISON STUDY: CT angiogram dated 08/14/2018 A 3-D [id number] MR angiographic sequence of the [place] was performed. Both the source and projection images were reviewed. There are no lesion suspicious for aneurysm. There is no evidence of major intracranial branch occlusion. There are mild to moderate intracranial atherosclerotic changes with a 50% stenosis of the M1 segment of the right middle cerebral artery. IMPRESSION: 1. 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 No evidence of major intracranial branch occlusion 3. No evidence of aneurysm Electronically signed by: Yonathan Delgado M.D. 08/15/2018 12:20 PM
--- NOTE | 2018-08-15 12:27 | Magnetic Resonance Report ---
MRI OF THE BRAIN WITHOUT CONTRAST CLINICAL HISTORY: imbalance ATAXIA, DIZZINESS. COMPARISON STUDY: None. FINDINGS: Sagittal T1, axial diffusion, proton density and T2 weighted axial, coronal FLAIR, and axial T1-weigh pk images were acquired. No intra or extra-axial mass lesions are visualized Axial diffusion-weighted images reveal no evidence of acute or subacute infarction. There is no evidence of ventricular dilatation. Proton density T2-weighted and FLAIR images reveal moderate scattered foci of increased T2 signal wit hin the white matter, likely on a small vessel basis. There are no abnormal flow voids. IMPRESSION: 1. No acute intracranial findings 2. No evidence of acute or subacute infarction 3. No evidence of intracranial mass on this noncontrast study 4. Foci of increased T2 signal within the white matter likely on a microvascular ischemic basis. Electronically signed by: Yonathan Delgado M.D. 08/15/2018 12:25 PM
--- NOTE | 2018-08-15 12:46 | Hospitalist Progress Note ---
Date of Service August 15, 2018 Assessment & Plan (1) Dizziness: (2) Ataxia: (3) Imbalance: Present on admission with dizziness CT head showed no intracranial abnormality CTA head/Neck showed approximately 50% stenosis within the M1 segment of the right middle cerebral artery. MRI head showed no intracranial abnormality MRA head showed mild to moderate intracranial atherosclerotic changes with a 50% stenosis of the M1 segment of the right middle cerebral artery Symptoms improves On aspirin and plavix now Neuro on board case discussed with neuro and OK from neuro standpoint to discharge home if stable Neuro recommended to discharge on lipitor and continue aspirin 81mg. Plavix d/c PT/OT unable to see patient today Very anxious and upset because she did not want to stay for another night to get cleared by PT/OT. She was already in the hallway walking. I went to walk with her in the hallway, gait was steady and did not require any assistance. No dizziness noted after she made one lap Tele monitor checked after I walked a lap with her in the hallway and no arrhythmia noted. Hypokalemia K 3.1 today K replaced Monitor BMP Elevated glucose Hba1c pending Elevated BP Possible related to hospital setting BP well control Was starting on lisinopril 2.5 mg If BP remains in the low side, will d/c lisinopril on discharge DVT px on Lovenox Disposition Discharge home today Follow up with pcp within 1 week Check BMP in 1 week. Subjective Pt was seen and examined Lying in bed with no distress Pt said that she does not have any dizziness She has been going to the bathroom with no assistance She did a couple lap in the hallway today with no discomfort Denies any focal neuro deficit Denies any chest pain, palpitation, dizziness and SOB Physical Exam Vital Signs (Past 24 Hours): Last Vital Signs Temp 36.6 C 08/15/18 11:37 Pulse 87 08/15/18 11:37 Resp 18 08/15/18 07:29 BP 104/65 08/15/18 11:37 Pulse Ox 93 08/15/18 11:37 Physical Exam: General- No acute distress Head- atraumatic Eyes- PERRL, EOMI, ENT- oropharynx clear Neck- supple, no JVD Lungs- clear to auscultation Heart- regular rhythm; no murmur Abdomen- normal bowel sounds, soft, nontender Extremities- no calf tenderness Neuro- alert, oriented x 3; PERRL, EOMI; no facial palsy; no dysarthria Skin- warm & dry
[2018-08-15] MEDS ORDERED: ASPIRIN 81 MG ECTAB PO SCH (21:00)
[2018-08-16 06:14] LABS: Estimated Average Glucose 128 mg/dl; Hemoglobin A1C 6.1 % (4.5-5.6)
[2018-08-16] MEDS ORDERED: ATORVASTATIN 20 MG TAB PO SCH (09:00)
--- NOTE | 2018-08-16 13:09 | Discharge Summary ---
Date of Service August 19, 2018 Admission HPI Per Admitting Provider History obtained from patient, family, and records. Medical history significant for breast cancer left status post surgery, chemoradiation, endometrial hyperplasia status post hysterectomy, hyperlipidemia, PVD, GERD as per records. This morning patient noted dizziness symptoms described as feeling imbalanced after doing yoga, no chest pain, no S OB. Short-lived episode yesterday.No chest pain, no S OB, no headache. 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
--- NOTE | 2018-08-18 21:45 | Discharge Summary ---
Date of Service August 15, 2018 Admission HPI Per Admitting Provider History obtained from patient, family, and records. Medical history significant for breast cancer left status post surgery, chemoradiation, endometrial hyperplasia status post hysterectomy, hyperlipidemia, PVD, GERD as per records. This morning patient noted dizziness symptoms described as feeling imbalanced after doing yoga, no chest pain, no S OB. Short-lived episode yesterday.No chest pain, no S OB, no headache. 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, Admission Exam Per Admitting Provider GENERAL: Comfortable, pleasant, looks younger for stated age, no respiratory distress SKIN: Normal color, warm HEENT: [place] palpebral conjunctivae, no ptosis, dry buccal mucosa NECK : Supple, no tenderness CHEST : CTA, no tenderness HEART : RRR, no obvious murmurs ABDOMEN: Some distention, nontender EXTREMITIES : No LE swelling/tenderness, no other conspicuous deformities noted NEUROLOGIC : Coherent, no facial asymmetry, gait and stance not assessed Principal Diagnosis Dizziness Discharge Exam General- No acute distress Head- atraumatic Eyes- PERRL, EOMI, ENT- oropharynx clear Neck- supple, no JVD Lungs- clear to auscultation Heart- regular rhythm; no murmur Abdomen- normal bowel sounds, soft, nontender Extremities- no calf tenderness Neuro- alert, oriented x 3; PERRL, EOMI; no facial palsy; no dysarthria Skin- warm & dry Discharge Data Allergies Allergy/AdvReac Type Severity Reaction Status Date / Time bacitracin Allergy Unknown SWELLING Verified 06/24/16 09:06 AT SITE neomycin Allergy Unknown SWELLING Verified 06/24/16 09:06 AT SITE polymyxin B Allergy Unknown SWELLING Verified 06/24/16 09:06 AT SITE morphine AdvReac Unknown HEADACHE Verified 06/24/16 10:30 Consultations 08/14/18 20:17 ED Decision to Admit Stat 08/14/18 22:54 Consult Case Management - Discharge Planning Routine Consult Neurology Routine Ordered Studies 08/14/18 18:55 CT angio head wo/w Stat CT angio neck with con Stat 08/15/18 22:54 MR brain wo con Routine 08/15/18 22:55 MR angio head wo con Routine MR ANGIOGRAPHY OF THE [place] NO CONTRAST CLINICAL HISTORY: Ataxia, dizziness. ABNORMAL CT ANGIOGRAPHY. COMPARISON STUDY: CT angiogram dated 08/14/2018 A 3-D [id number] MR angiographic sequence of the [place] was performed. Both the source and projection images were reviewed. There are no lesion suspicious for aneurysm. There is no evidence of major intracranial branch occlusion. There are mild to moderate intracranial atherosclerotic changes with a 50% stenosis of the M1 segment of the right middle cerebral artery. IMPRESSION: 1. 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 No evidence of major intracranial branch occlusion 3. No evidence of aneurysm Electronically signed by: Yonathan Delgado M.D. 08/15/2018 12:20 PM Dictated: 08/15/18 1212 Transcribed: 08/15/181211 MRI OF THE BRAIN WITHOUT CONTRAST CLINICAL HISTORY: imbalance ATAXIA, DIZZINESS. COMPARISON STUDY: None. FINDINGS: Sagittal T1, axial diffusion, proton density and T2 weighted axial, coronal FLAIR, and axial T1-weighted images were acquired. No intra or extra-axial mass lesions are visualized Axial diffusion-weighted images reveal no evidence of acute or subacute infarction. There is no evidence of ventricular dilatation. Proton density T2-weighted and FLAIR images reveal moderate scattered foci of increased T2 signal within the white matter, likely on a small vessel basis. There are no abnormal flow voids. IMPRESSION: 1. No acute intracranial findings 2. No evidence of acute or subacute infarction 3. No evidence of intracranial mass on this noncontrast study 4. Foci of increased T2 signal within the white matter likely on a microvascular ischemic basis. Electronically signed by: Yonathan Delgado M.D. 08/15/2018 12:25 PM Dictated: 08/15/18 1222 Transcribed: 08/15/[address] ANGIOGRAM OF THE BRAIN COMBO; CT ANGIOGRAM OF THE NECK CLINICAL HISTORY: Ataxia. Dizziness. COMPARISON STUDY: No priors. TECHNIQUE: Unenhanced axial CT scan of the brain is performed. Subsequently, following the IV administration of 121 of Optiray 320, CT angiogram of the head and neck was performed from the aortic arch to the vertex. Images are reviewed in the axial, sagittal, and coronal planes. 3-D MIPS images are created and assessed. IV contrast was administered without complication. All measurements were calculated based on NASCET criteria. A dose lowering technique was utilized adhering to the principles of ALARA. CT DOSE: 1247.47 mGy.cm FINDINGS: Brain parenchyma: There is age-related involutional change noting mild subcortical and periventricular microangiopathic disease. There is no hemorrhage, mass effect, or evidence of acute territorial ischemia by CT criteria. There is no evidence of enhancing mass lesion on the angiogram phase images. The ventricles, sulci, and cisterns are prominent secondary to involutional change. [place]-white matter differentiation is preserved. No extra- axial fluid collection is seen. Thoracic aorta: There is atherosclerotic calcification of the thoracic aorta. Visualized portions of the thoracic aorta are normal in caliber. The aortic arch demonstrates standard 3-vessel anatomy. Right carotid arterial system: The right common carotid artery is widely patent, as are the right internal and external carotid arteries. Mild atherosclerotic plaque is noted in the carotid bulb. There is tortuosity of the distal right internal carotid artery. Left carotid arterial system: The left common carotid artery is widely patent, as are the left internal and external carotid arteries. There is tortuosity of the distal left internal carotid artery. Vertebral arteries: Widely patent bilaterally and codominant. Subclavian arteries: Widely patent bilaterally. Intracranial vasculature: There is mild atherosclerotic calcification of the cavernous carotid arteries. There is origin of the right posterior cerebral artery. The internal carotid arteries are patent at the skull base. There is approximately 50% focal stenosis of the M1 segment of the right middle cerebral artery. This is best seen on axial image #103. The anterior and middle cerebral arteries are otherwise patent bilaterally. The vertebrobasilar system and posterior cerebral arteries are widely patent. The vertebral arteries are codominant. There is no aneurysm or focal vessel cut off seen throughout the intracranial circulation. Jugular veins: Widely patent bilaterally. Dural sinuses: Patent. Lung apices: Apical scarring is noted. Imaged upper lobe lung parenchyma is otherwise clear. Soft tissues: The visualized pharyngeal soft tissues are normal in appearance noting angiographic phase technique. The oropharyngeal airway appears widely patent. The salivary and thyroid glands are normal in appearance. No cervical lymphadenopathy is seen. Skeletal structures: The skeletal structures are osteopenic. The calvarium appears intact. The cervical spine is maintained noting multilevel spondylosis. No lytic or blastic lesion is seen. Bone islands are noted in the bodies of T4 and T5. Orbits: The bony orbits are intact. Orbital contents are normal in appearance noting bilateral ocular lens implants. Sinuses and mastoids: There is trace mucosal thickening within the right maxillary antrum. The remaining paranasal sinuses are clear. The mastoid air cells are well pneumatized. IMPRESSION: 1. There is no hemorrhage, mass effect, or evidence of acute territorial ischemia by CT criteria. 2. 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 3. Otherwise unremarkable CT angiogram of the brain. 4. Unremarkable CT angiogram of the neck. Electronically signed by: Perez Mace M.D. 08/14/2018 7:52 PM Dictated: 08/14/181936 Transcribed: 08/14/181936 CT ANGIOGRAM OF THE BRAIN COMBO; CT ANGIOGRAM OF THE NECK CLINICAL HISTORY: Ataxia. Dizziness. COMPARISON STUDY: No priors. TECHNIQUE: Unenhanced axial CT scan of the brain is performed. Subsequently, following the IV administration of 121 of Optiray 320, CT angiogram of the head and neck was performed from the aortic arch to the vertex. Images are reviewed in the axial, sagittal, and coronal planes. 3-D MIPS images are created and assessed. IV contrast was administered without complication. All measurements were calculated based on NASCET criteria. A dose lowering technique was utilized adhering to the principles of ALARA. CT DOSE: 1247.47 mGy.cm FINDINGS: Brain parenchyma: There is age-related involutional change noting mild subcortical and periventricular microangiopathic disease. There is no hemorrhage, mass effect, or evidence of acute territorial ischemia by CT criteria. There is no evidence of enhancing mass lesion on the angiogram phase images. The ventricles, sulci, and cisterns are prominent secondary to involutional change. [place]-white matter differentiation is preserved. No extra- axial fluid collection is seen. Thoracic aorta: There is atherosclerotic calcification of the thoracic aorta. Visualized portions of the thoracic aorta are normal in caliber. The aortic arch demonstrates standard 3-vessel anatomy. Right carotid arterial system: The right common carotid artery is widely patent, as are the right internal and external carotid arteries. Mild atherosclerotic plaque is noted in the carotid bulb. There is tortuosity of the distal right internal carotid artery. Left carotid arterial system: The left common carotid artery is widely patent, as are the left internal and external carotid arteries. There is tortuosity of the distal left internal carotid artery. Vertebral arteries: Widely patent bilaterally and codominant. Subclavian arteries: Widely patent bilaterally. Intracranial vasculature: There is mild atherosclerotic calcification of the cavernous carotid arteries. There is origin of the right posterior cerebral artery. The internal carotid arteries are patent at the skull base. There is approximately 50% focal stenosis of the M1 segment of the right middle cerebral artery. This is best seen on axial image #103. The anterior and middle cerebral arteries are otherwise patent bilaterally. The vertebrobasilar system and posterior cerebral arteries are widely patent. The vertebral arteries are codominant. There is no aneurysm or focal vessel cut off seen throughout the intracranial circulation. Jugular veins: Widely patent bilaterally. Dural sinuses: Patent. Lung apices: Apical scarring is noted. Imaged upper lobe lung parenchyma is otherwise clear. Soft tissues: The visualized pharyngeal soft tissues are normal in appearance noting angiographic phase technique. The oropharyngeal airway appears widely patent. The salivary and thyroid glands are normal in appearance. No cervical lymphadenopathy is seen. Skeletal structures: The skeletal structures are osteopenic. The calvarium appears intact. The cervical spine is maintained noting multilevel spondylosis. No lytic or blastic lesion is seen. Bone islands are noted in the bodies of T4 and T5. Orbits: The bony orbits are intact. Orbital contents are normal in appearance noting bilateral ocular lens implants. Sinuses and mastoids: There is trace mucosal thickening within the right maxillary antrum. The remaining paranasal sinuses are clear. The mastoid air cells are well pneumatized. IMPRESSION: 1. There is no hemorrhage, mass effect, or evidence of acute territorial ischemia by CT criteria. 2. 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 3. Otherwise unremarkable CT angiogram of the brain. 4. Unremarkable CT angiogram of the neck. Electronically signed by: Perez Mace M.D. 08/14/2018 7:52 PM Dictated: 08/14/181936 Transcribed: 08/14/181936 Hospital Course (1) Dizziness: (2) Ataxia: (3) Imbalance: Present on admission with dizziness CT head showed no intracranial abnormality CTA head/Neck showed approximately 50% stenosis within the M1 segment of the right middle cerebral artery. MRI head showed no intracranial abnormality MRA head showed mild to moderate intracranial atherosclerotic changes with a 50% stenosis of the M1 segment of the right middle cerebral artery Symptoms improves On aspirin and plavix now Neuro on board case discussed with neuro and OK from neuro standpoint to discharge home if stable Neuro recommended to discharge on lipitor and continue aspirin 81mg. Plavix d/c PT/OT unable to see patient today Very anxious and upset because she did not want to stay for another night to get cleared by PT/OT. She was already in the hallway walking. I went to walk with her in the hallway, gait was steady and did not require any assistance. No dizziness noted after she made one lap Tele monitor checked after I walked a lap with her in the hallway and no arrhythmia noted. Hypokalemia K 3.1 today K replaced Monitor BMP Elevated glucose Hba1c pending Elevated BP Possible related to hospital setting BP well control Was starting on lisinopril 2.5 mg If BP remains in the low side, will d/c lisinopril on discharge DVT px on Lovenox Disposition Discharge home today Follow up with pcp within 1 week Check BMP in 1 week. Total Time Total Time Spent Total Time Spent (In Minutes): 35 minutes Total Time Includes: Examination of the Patient, Discharge Planning, Medication Reconciliation, Communication With Other Providers and Other Discharge Plan Discharge Items Patient Disposition: Home - Self-Care Reason For Visit: IMBALANCE/DIZZINESS Discharge Diagnosis: Dizziness Discharge Goals: Decrease discomfort, Diagnostic testing, Improve disease control, Improve function and Increase independence Activity: Resume your previous activity Activity Comment: As tolerated Non-emergency contact: Primary Care Provider Call non-emergency contact if: you have any medication questions Follow-up/Referrals: Apolonia Cole MD [Primary Care Provider] - Diet: Low Sodium (2gm) Addtl Provider Instructions: Please call to schedule a follow up appointment with your primary care provider Follow up with neurology if symptom reoccurs (your physician can arrange for the referral) Fall precaution Check BMP in 1 week Check liver enzymes in 1-2 week since you are starting on lipitor Monitor your blood pressure Increase potassium supplement in your diet Prescriptions: New atorvastatin 20 mg Tablet 20 mg PO QAM 30 Days Qty: 30 RF: 0 Continued multivitamin Tablet 1 tab PO QAM RF: 0 ascorbic acid (vitamin C) [Vitamin C] 1,000 mg Tablet 1,000 mg PO BID RF: 0 aspirin [Aspir-Low] 81 mg Tablet,Delayed Release (Dr/Ec) 81 mg PO HS RF: 0 selenium 50 mcg Tablet PO DAILY RF: 0 garlic 1,000 mg Capsule PO HS RF: 0 amitriptyline 25 mg tablet 50 mg PO HS RF: 0 Lotemax 0.5 % drops,suspension 1 drp OPB BID RF: 0 calcium carbonate-vitamin D3 [Calcium 500 + D (D3)] 500 mg(1,250mg) -125 unit Tablet 1 tab PO HS RF: 0 magnesium oxide 400 mg magnesium Tablet 400 mg PO HS RF: 0 Stand-Alone Forms: [facility] Discharge Orders: Discharge Order (Routine); Ordered 08/15/18 Ordered By: Gema Ennis Admission Data Admit Date/Time: 08/14/18 22:54 Attending Provider: Gema Ennis Admit Provider: Joel Dubose Primary Care Provider: Apolonia Cole Other Providers: Joel Dubose ; Fabián Dalton Service: Telemetry Medical Other Interventions: Discharge Summary Assessment (RN) Last Done: 08/15/18 18:48 DC Date/Time DO NOT enter until pt leaves facility: 08/15/18 19:11
--- NOTE | 2018-08-19 07:27 | Coding Query ---
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 Please assist us with the question(s) below: Coding Question(s): Patient admitted with dizziness and hypertension. CT = 50% stenosis of MCA . Neuro consult = acute vestibular syndrome. Please document, if known or suspected, the etiology of patient's dizziness. Thank you ! Jonny Bianchi [employer] [facility] Physician's Response(s): Etiology unknown Principal Diagnosis: "that condition established after study, to be chiefly responsible for occasioning the admission of the patient to the hospital for care." Co-Existing Principal Diagnosis: "when two or more diagnoses equally meet the criteria for principal diagnosis as determined by the circumstances of admission, diagnostic work up, and/or therapy provided, and the Alphabetic Index, Tabular List, or another coding guideline does not provide sequencing direction, any one of the diagnoses may be sequenced first." "When the physician has documented what appears to be a current diagnosis in the body of the record, but has not included the diagnosis in the final diagnostic statement, the physician should be asked whether the diagnosis should be added." (Source Coding [facility] 2 QTR90. p3-4) MER
== END 2018-08-15 19:11 | disposition home or self-care (01) | DRG 149 ==
LOC: ED 18:26 → 2N 22:54 → SUATTDRO 22:54 → 2N 23:21

== ENCOUNTER 2021-04-16 12:09 | Observation (INO) ==
--- NOTE | 2021-04-16 12:13 | Emergency Department Note ---
Impression & Plan Vertigo, Ambulatory dysfunction, Hypertension ED Provider Note NAME: DIONTE CHOPRA AGE: 81 SEX: F : 1940 ARRIVES VIA: Ambulance INFORMANT: Patient, ED PROVIDER(S): Erick Carroll MD Chief Complaint: Dizziness, lightheadedness HPI: Patient does present from home with the above complaints. The patient was apparently on her iPad had stood up quickly and developed some dizziness. The patient states that has been persistent since this began. Patient states this is not happened before. Patient did have a recent trip to [place] at the end of March. The patient denies any recent alcohol use since her trip and denies any tobacco or drug use. The patient is vaccinated for COVID-19. Patient does take a baby aspirin but no other blood thinning medications. Patient does state that she has a pressure in her left head and states it is worse with sitting up or standing up. Patient did have a fall during her trip in [place] and where the patient did require several alonzo. ROS: See HPI for pertinent positives and negatives. A total of 10 systems were reviewed and otherwise negative. Past medical history: See below Surgical history: See below Social history: See below Physical Exam: GENERAL: NAD, wearing a mask, non-toxic. EYE EXAM: Normal conjunctiva. PERRL, no anisocoria and EOM's grossly intact w/o pain. No nystagmus noted. NECK: Supple, no nuchal rigidity, no adenopathy, non-tender. No signs of meningismus. No carotid bruits appreciated. LUNGS: Clear to auscultation. Normal chest wall mechanics. HEART: NSR, no MRG. ABDOMEN: Abdomen soft, non-tender, normo-active bowel sounds, no masses, no rebound or guarding. BACK: No CVA TTP. SKIN: No rashes and no bruising. UPPER EXTREMITIES: Upper extremities are grossly normal. LOWER EXTREMITIES: Grossly normal, no edema. NEURO EXAM: A&O x3, cranial nerves II-XII grossly intact, normal speech, moves all 4 extremities on command w/o issue. Good finger to nose, no drift, no sensory deficits. Differential diagnoses: Benign positional vertigo, dehydration, hypovolemia, anemia, tumor, infection, hypoglycemia, electrolyte abnormalities, cardiac sources, intracerebral event, toxicologic, neurologic, as well as other path ologies. Course: Patient was seen and evaluated the bedside. Full history physical exam was perf ormed. EKG interpreted by me Normal sinus rhythm, rate of 72, wide QRS, final branch block pattern. Left axis deviation. Left bundle branch block pattern. No obvious sgarbossa criteria. No obvious ST elevations. Imaging Studies: See Below Cardiac monitoring: An order was placed for continuous cardiac monitoring. The monitor shows a rate of 72 with sinus rhythm. MDM: Patient was seen due to concern for pressure on left side of the head with associated dizziness. The patient did have blood work completed. The patient never complained of vertiginous symptoms. The patient had a normal white count H&H and platelet count. Kidney function is unremarkable. The patient is noted to be hypertensive. The patient troponin not detectable. EKG with no obvious arrhythmia. Urinalysis negative for obvious infection. CT head negative. Patient has a nonfocal neurologic exam has no nystagmus good [id number]. Patient was gotten up to ambulate and the patient did feel vertiginous at this time. Patient subsequently treated for her symptoms with meclizine and Compazine. The patient's blood pressure did improve over time. Patient states that she felt improved. Patient did undergo a repeat ambulatory trial. Patient did not do this satisfactorily to where the patient is not safe for home at this time. I did speak with the on-call hospitalist Nora Mercedes PA-C and the patient was admitted by Dr. Minor. 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) Tear of meniscus of right knee Surgical History (Updated 04/16/21 @ 17:38 by Erick Carroll MD) No pertinent past surgical history Family History Other No significant family history Social History Smoking Status: Never smoker Second Hand Exposure: No; Hx Alcohol Use: Yes Alcohol type: wine Hx Substance Use: No Preferred Language: Vietnamese Communication Ability: Effective Plate Filler Required: No Beliefs That Will Affect Care: None Current Living Situation: Alone Feels Safe at Home: Yes Assistive Devices: Glasses and Walker Allergies Allergies Allergy/AdvReac Type Severity Reaction Status Date / Time bacitracin Allergy Unknown SWELLING Verified 04/16/21 13:44 AT SITE neomycin Allergy Unknown SWELLING Verified 04/16/21 13:44 AT SITE polymyxin B Allergy Unknown SWELLING Verified 04/16/21 13:44 AT SITE morphine AdvReac Unknown HEADACHE Verified 04/16/21 13:44 Home Meds Home Medications Medication Instructions Recorded Confirmed ascorbic acid (vitamin C) 1,000 mg 1,000 mg PO BID 08/14/18 04/16/21 tablet (Vitamin C) magnesium oxide 400 mg PO HS 08/14/18 04/16/21 multivitamin 1 tab PO QAM 08/14/18 04/16/21 selenium 50 mcg tablet 0 mcg PO QAM 08/14/18 04/16/21 atorvastatin 20 mg tablet 20 mg PO QAM 04/16/21 04/16/21 calcium carbonate 500 mg (1,250 1 tab PO HS 04/16/21 04/16/21 mg)-vitamin D3 125 unit tablet trazodone 50 mg tablet 50 mg PO HS 04/16/21 04/16/21 Results & Data (ED) Vital Signs Vital Signs - 24 hr 04/16/21 12:17 04/16/21 12:21 04/16/21 12:24 Temperature 36.6 C Temperature Source Oral Pulse Rate - Lying Pulse Rate - Sitting Pulse Rate - Standing Pulse Rate 73 69 Pulse Rate [Radial] Pulse Rate from SpO2 Sensor Pulse Rhythm Regular Respiratory Rate 16 16 Respiratory Effort / Characteristics Non-Labored Spontaneous Respiratory Depth Normal Respiratory Pattern Regular Blood Pressure - Lying Blood Pressure - Sitting Blood Pressure- Standing Blood Pressure 208/108 H Blood Pressure [Right Arm] Blood Pressure Mean 141 Blood Pressure Mean [Right Arm] Blood Pressure Position Sitting Pulse Oximetry 97 97 94 Oxygen Delivery Method Room Air Room Air Sepsis Recent Fever Within 48 Hours No Sepsis New/Unexplained Change in Mental Status No Sepsis Action Taken by Nursing No Action Required 04/16/21 12:33 04/16/21 14:35 04/16/21 15:30 Temperature Temperature Source Pulse Rate - Lying 69 Pulse Rate - Sitting 74 Pulse Rate - Standing 73 Pulse Rate 72 67 Pulse Rate [Radial] Pulse Rate from SpO2 Sensor 71 66 Pulse Rhythm Respiratory Rate 14 17 Respiratory Effort / Characteristics Respiratory Depth Respiratory Pattern Blood Pressure - Lying 194/82 H Blood Pressure - Sitting 211/71 H Blood Pressure- Standing 155/66 H Blood Pressure 145/90 H Blood Pressure [Right Arm] Blood Pressure Mean 108 Blood Pressure Mean [Right Arm] Blood Pressure Position Pulse Oximetry 96 98 Oxygen Delivery Method Sepsis Recent Fever Within 48 Hours Sepsis New/Unexplained Change in Mental Status Sepsis Action Taken by Nursing 04/16/21 16:30 Temperature Temperature Source Pulse Rate - Lying Pulse Rate - Sitting Pulse Rate - Standing Pulse Rate Pulse Rate [Radial] 65 Pulse Rate from SpO2 Sensor Pulse Rhythm Respiratory Rate 18 Respiratory Effort / Characteristics Respiratory Depth Respiratory Pattern Blood Pressure - Lying Blood Pressure - Sitting Blood Pressure- Standing Blood Pressure Blood Pressure [Right Arm] 156/73 H Blood Pressure Mean Blood Pressure Mean [Right Arm] 100 Blood Pressure Position Pulse Oximetry 98 Oxygen Delivery Method Room Air Sepsis Recent Fever Within 48 Hours Sepsis New/Unexplained Change in Mental Status Sepsis Action Taken by Usp Medications Current Medication List: was personally reviewed by me Laboratory Data Attestation: I reviewed the patient's lab results. Result diagrams: 04/16/21 12:42 04/16/21 12:42 Lab Results 04/16/21 04/16/21 04/16/21 Range/Units 12:42 12:42 15:43 WBC 6.37 (4.8-10.8) K/uL RBC 4.50 (4.2-5.4) M/uL Hgb 14.7 (12.0-16.0) g/dL Hct 42.8 (37-47) % MCV 95.1 (80-100) fL MCH 32.7 (25-34) pg MCHC 34.3 (32-36) g/dL RDW Std Deviation 43.8 (36.4-46.3) fL RDW Coeff of Frannie 12.7 (11.5-14.5) % Plt Count 318 (130-400) K/uL MPV 10.2 (7.4-10.4) fL Immature Gran % (Auto) 0.2 % Neut % (Auto) 61.1 % Lymph % (Auto) 27.3 % Eddy % (Auto) 9.4 % Eos % (Auto) 1.7 % Baso % (Auto) 0.3 % Neut # (Auto) 3.89 (1.4-6.5) K/uL Lymph # (Auto) 1.74 (1.2-3.4) K/uL Eddy # (Auto) 0.60 H (0.11-0.59) K/uL Eos # (Auto) 0.11 (0-0.5) K/uL Baso # (Auto) 0.02 (0-0.2) K/uL Immature Gran # (Auto) 0.01 (0.00-0.02) K/uL Sodium 139 (136-145) mmol/L Potassium 3.8 (3.5-5.1) mmol/L Chloride 103 (98-107) mmol/L Carbon Dioxide 28 (21-32) mmol/L Anion Gap 7.0 (3-11) BUN 9 (7-18) mg/dl Creatinine 0.85 (0.6-1.2) mg/dl Est Cr Clr Drug Dosing 49.4 ml/min Est GFR ( Amer) 75.0 ml/min Est GFR (Non-Af Amer) 64.7 ml/min BUN/Creatinine Ratio 10.2 (10-20) Glucose 132 H (70-99) mg/dl Calcium 9.3 (8.5-10.1) mg/dl Total Bilirubin 0.6 (0.2-1) mg/dl AST 26 (15-37) U/L ALT 36 (12-78) U/L Alkaline Phosphatase 95 (45-117) U/L Troponin I < 0.015 (0-0.045) ng/ml Total Protein 7.5 (6.4-8.2) gm/dl Albumin 3.7 (3.4-5.0) gm/dl Globulin 3.8 (2.5-4.0) gm/dl Albumin/Globulin Ratio 1.0 (0.9-2) Urine Color Yellow Urine Appearance Clear (Clear) Urine pH 8.0 H (4.5-7.5) Ur Specific [place] 1.005 (1.000-1.030) Urine Protein Negative (Negative) Urine Glucose (UA) Negative (Negative) Urine Ketones Negative (Negative) Urine Blood Negative (Negative) Urine Nitrite Negative (Negative) Urine Bilirubin Negative (Negative) Urine Urobilinogen Negative (Negative) Ur Leukocyte Esterase Trace H (Negative) Urine WBC (Auto) 1-5 (0-5) /hpf Urine RBC (Auto) 0-4 (0-4) /hpf U Hyaline Cast (Auto) 0 (0-5) /lpf U Epithel Cells (Auto) 5-10 H (0-5) /lpf Urine Bacteria (Auto) Negative (Negative) COVID-19 Eval Order 04/16/21 Range/Units 17:30 WBC (4.8-10.8) K/uL RBC (4.2-5.4) M/uL Hgb (12.0-16.0) g/dL Hct (37-47) % MCV (80-100) fL MCH (25-34) pg MCHC (32-36) g/dL RDW Std Deviation (36.4-46.3) fL RDW Coeff of Frannie (11.5-14.5) % Plt Count (130-400) K/uL MPV (7.4-10.4) fL Immature Gran % (Auto) % Neut % (Auto) % Lymph % (Auto) % Eddy % (Auto) % Eos % (Auto) % Baso % (Auto) % Neut # (Auto) (1.4-6.5) K/uL Lymph # (Auto) (1.2-3.4) K/uL Eddy # (Auto) (0.11-0.59) K/uL Eos # (Auto) (0-0.5) K/uL Baso # (Auto) (0-0.2) K/uL Immature Gran # (Auto) (0.00-0.02) K/uL Sodium (136-145) mmol/L Potassium (3.5-5.1) mmol/L Chloride (98-107) mmol/L Carbon Dioxide (21-32) mmol/L Anion Gap (3-11) BUN (7-18) mg/dl Creatinine (0.6-1.2) mg/dl Est Cr Clr Drug Dosing ml/min Est GFR ( Amer) ml/min Est GFR (Non-Af Amer) ml/min BUN/Creatinine Ratio (10-20) Glucose (70-99) mg/dl Calcium (8.5-10.1) mg/dl Total Bilirubin (0.2-1) mg/dl AST (15-37) U/L ALT (12-78) U/L Alkaline Phosphatase (45-117) U/L Troponin I (0-0.045) ng/ml Total Protein (6.4-8.2) gm/dl Albumin (3.4-5.0) gm/dl Globulin (2.5-4.0) gm/dl Albumin/Globulin Ratio (0.9-2) Urine Color Urine Appearance (Clear) Urine pH (4.5-7.5) Ur Specific [place] (1.000-1.030) Urine Protein (Negative) Urine Glucose (UA) (Negative) Urine Ketones (Negative) Urine Blood (Negative) Urine Nitrite (Negative) Urine Bilirubin (Negative) Urine Urobilinogen (Negative) Ur Leukocyte Esterase (Negative) Urine WBC (Auto) (0-5) /hpf Urine RBC (Auto) (0-4) /hpf U Hyaline Cast (Auto) (0-5) /lpf U Epithel Cells (Auto) (0-5) /lpf Urine Bacteria (Auto) (Negative) COVID-19 Eval Order Covid19 at [facility] Administered Medications Discontinued Medications Prochlorperazine (Compazine) 2 mls @ 1 mls/min IV ONE ONE Stop: 04/16/21 15:10 Last Admin: 04/16/21 15:35 Dose: 1 mls/min Documented by: [id number] Meclizine HCl (Meclizine Hcl 25 Mg Tab) 25 mg PO NOW STA Stop: 04/16/21 15:10 Last Admin: 04/16/21 15:34 Dose: 25 mg Documented by: [id number] Imaging Data Radiologist's Impression: Head CT 04/16/21 12:24 CT SCAN OF THE BRAIN WITHOUT IV CONTRAST CLINICAL HISTORY: Ataxia. COMPARISON STUDY: CT of the brain dated 08/14/2018. TECHNIQUE: Unenhanced axial CT scan of the brain is performed from the vertex to the skull base. A dose lowering technique was utilized adhering to the princi ples of SIMONE. CT DOSE: 537.48 mGy.cm FINDINGS: Brain parenchyma: There are age-related involutional changes noting mild to moderate subcortical and periventricular microangiopathic change. There is no hemorrhage, mass effect, or evidence of acute territorial ischemia by CT criteria. [place]ed[place]-white matter differentiation is preserved. No extra-axial fluid collection is seen. Ventricles, sulci, cisterns: Prominent secondary to involutional change. Intracranial vasculature: There is atherosclerotic calcification of the cavernous carotid arteries. Calvarium: Unremarkable. Sinuses and mastoids: The visualized paranasal sinuses are clear. The mastoid air cells are well pneumatized. Orbits: The bony orbits are grossly intact. There are bilateral ocular lens implants. IMPRESSION: There is no hemorrhage, mass effect, or evidence of acute territorial ischemia by CT criteria. ACT 112: Negative or not required by law. Electronically signed by: Perez Mace M.D. 04/16/2021 1:02 PM Discharge Plan Visit Data Chief Complaint: Dizziness Stated Complaint: Dizzy ED Provider: Erick Carroll Discharge Problem: Vertigo, Ambulatory dysfunction, Hypertension Patient Disposition: Admitted As Inpatient Prescriptions Prescriptions: No Action multivitamin Tablet 1 tab PO QAM RF: 0 ascorbic acid (vitamin C) [Vitamin C] 1,000 mg Tablet 1,000 mg PO BID RF: 0 selenium 50 mcg Tablet 0 mcg PO QAM RF: 0 magnesium oxide 400 mg magnesium Tablet 400 mg PO HS RF: 0 atorvastatin 20 mg tablet 20 mg PO QAM RF: 0 trazodone 50 mg tablet 50 mg PO HS RF: 0 calcium carbonate-vitamin D3 [Calcium 500 + D (D3)] 500 mg(1,250mg) -125 unit Tablet 1 tab PO HS RF: 0 Referrals Referrals: Apolonia Cole MD [Primary Care Provider] -
[2021-04-16 12:56] LABS: Basophils # (auto) 0.02 K/uL (0-0.2); Basophils % (auto) 0.3 %; Eosinophils # (auto) 0.11 K/uL (0-0.5); Eosinophils % (auto) 1.7 %; Hematocrit (blood only) 42.8 % (37-47); Hemoglobin 14.7 g/dL (12.0-16.0); Immature Granulocytes # (auto) 0.01 K/uL (0.00-0.02); Immature Granulocytes % (auto) 0.2 %; Lymphocytes # (auto) 1.74 K/uL (1.2-3.4); Lymphocytes % (auto) 27.3 %; Mean Corpuscular Hemoglobin 32.7 pg (25-34); Mean Corpuscular Hgb Conc 34.3 g/dL (32-36); Mean Corpuscular Volume 95.1 fL (80-100); Mean Platelet Volume 10.2 fL (7.4-10.4); Monocytes % (auto) 9.4 %; Neutrophils # (auto) 3.89 K/uL (1.4-6.5); Neutrophils % (auto) 61.1 %; Platelet Count 318 K/uL (130-400); RDW Coefficient of Variation 12.7 % (11.5-14.5); RDW Standard Deviation 43.8 fL (36.4-46.3); White Blood Count 6.37 K/uL (4.8-10.8)
--- NOTE | 2021-04-16 13:03 | CT Scan Report ---
CT SCAN OF THE BRAIN WITHOUT IV CONTRAST CLINICAL HISTORY: Ataxia. COMPARISON STUDY: CT of the brain dated 08/14/2018. TECHNIQUE: Unenhanced axial CT scan of the brain is performed from the vertex to the skull base. A do se lowering technique was utilized adhering to the principles of ALARA. CT DOSE: 537.48 mGy.cm FINDINGS: Brain parenchyma: There are age-related involutional changes noting mild to moderate subcortical and periventricular microangiopathic change. There is no hemorrhage, mass effect, or evidence of acute t erritorial ischemia by CT criteria. Cedeno-white matter differentiation is preserved. No extra-axial fl uid collection is seen. Ventricles, sulci, cisterns: Prominent secondary to involutional change. Intracranial vasculature: There is atherosclerotic calcification of the cavernous carotid arteries. Calvarium: Unremarkable. Sinuses and mastoids: The visualized paranasal sinuses are clear. The mastoid air cells are well pneu matized. Orbits: The bony orbits are grossly intact. There are bilateral ocular lens implants. IMPRESSION: There is no hemorrhage, mass effect, or evidence of acute territorial ischemia by CT luis antonio aguilar. ACT 112: Negative or not required by law. Electronically signed by: Perez Mace M.D. 04/16/2021 1:02 PM
[2021-04-16 13:13] LABS: Alanine Aminotransferase 36 U/L (12-78); Albumin Level 3.7 gm/dl (3.4-5.0); Aspartate Aminotransferase 26 U/L (15-37); BUN Creatinine Ratio 10.2 (10-20); Blood Urea Nitrogen 9 mg/dl (7-18); Calcium 9.3 mg/dl (8.5-10.1); Carbon Dioxide 28 mmol/L (21-32); Chloride 103 mmol/L (98-107); Creatinine Clr Calc Pharmacy 49.4 ml/min; Est GFR (Non-African American) 64.7 ml/min; Glucose 132 mg/dl (70-99); Potassium 3.8 mmol/L (3.5-5.1); Sodium 139 mmol/L (136-145)
[2021-04-16 13:18] LABS: Alkaline Phosphatase 95 U/L (45-117); Bilirubin,Total 0.6 mg/dl (0.2-1); Globulin 3.8 gm/dl (2.5-4.0); Total Protein 7.5 gm/dl (6.4-8.2); Troponin I < 0.015 ng/ml (0-0.045)
[2021-04-16] MEDS ORDERED: PROCHLORPERAZINE 2 ML IV ONE (15:09)
[2021-04-16] MEDS ORDERED: MECLIZINE HCL 25 MG TAB PO STA (15:09)
[2021-04-16 16:22] LABS: Appearance Urine Clear (Clear); Bacteria Urine Automated Negative (Negative); Bilirubin Urine Negative (Negative); Blood Urine Negative (Negative); Cast Urine Automated 0 /lpf (0-5); Color Urine Yellow; Glucose Urine UA Negative (Negative); Ketones Urine Negative (Negative); Leukocyte Esterase Urine Trace (Negative); Nitrite Urine Negative (Negative); Protein Urine Negative (Negative); RBC Urine Automated 0-4 /hpf (0-4); Specific Gravity Urine 1.005 (1.000-1.030); Urobilinogen Urine Negative (Negative)
--- NOTE | 2021-04-16 18:28 | History & Physical Report ---
Date of Service April 16, 2021 Assessment & Plan (1) Ambulatory dysfunction: Plan: Due to #2 - Consult PT/OT - consider Raza maneuver if indicated. - Fall precautions (2) Dizziness: Plan: Some improvement in dizziness with improvement in elevated BP. 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 Pt does not check BP at home. Will re- eval overnight/in AM to determine if persistent elevation that needs outpatient treatment. Consider home BP log. - For now, IV hydralazine 2.5 mg PRN (5) Constipation: Plan: Continue home meds Plan: Pt seen and reviewed with attending physician, Dr. Minor. Plan of care discussed and as outlined above. DVT Prophylaxis: Lovenox Code status: full code Siobhan Mercedes PA-C History of Present Illness Chief Complaint: Dizziness Primary Care Provider: Apolonia Cole MD This is an 81 y/o female with a PMH of breast cancer (s/p mastectomy and chemo), peripheral neuropathy, constipation, and recent primary insomnia who presents to the ED with sudden onset of lightheadedness this morning. Pt reports that she got up this morning feeling her usual, did her stretching exercises, got dressed, ate breakfast and afterwards had the sudden onset of "fuzziness" on the left side of her head then dizziness that she describes as being very lightheaded. Denies vertigo sensation. This lightheadedness was so severe that they called EMS and pt was brought to the ED via ambulance. Initial BP in the ED was markedly elevated with systolic >200. Pt denies prior history of HTN although recent BPs outpatient have been "borderline elevated" per PCP notes. Pt denies associated weakness, facial droop, slurred speech, vision changes, or change in chronic numbness/tingling in feet related to neuropathy. She had an episode of dizziness in 2019 but reports that was more vertiginous than current symptoms. She was ultimately diagnosed with vestibular neuronitis and has learned to manage with exercises at home when it flares up. She rates symptoms at 5-6/10 at rest, worse with sitting up or ambulating. She failed ambulatory trial x 2 in the ED so she has been referred for admission. She was given compazine and meclizine without significant relief. Pt also notes several months of primary insomnia for which she has tried multiple medicines, both prescription and OTC. She has an appt with sleep med in June but is concerned that this is not soon enough as lack of sleep is impacting her ability to function. She is sleeping ~2 hrs most nights, issue is with staying asleep. Most recently she has been taking trazodone 100 mg, with which she has seen sma ll improvements. Allergies Allergy/AdvReac Type Severity Reaction Status Date / Time bacitracin Allergy Unknown SWELLING Verified 04/16/21 13:44 AT SITE neomycin Allergy Unknown SWELLING Verified 04/16/21 13:44 AT SITE polymyxin B Allergy Unknown SWELLING Verified 04/16/21 13:44 AT SITE morphine AdvReac Unknown HEADACHE Verified 04/16/21 13:44 Home Medications Medication Instructions Recorded Confirmed Type ascorbic acid (vitamin C) 1,000 mg 1,000 mg PO BID 08/14/18 04/16/21 History tablet (Vitamin C) magnesium oxide 400 mg PO HS 08/14/18 04/16/21 History multivitamin 1 tab PO QAM 08/14/18 04/16/21 History selenium 50 mcg tablet 100 mcg PO QAM 08/14/18 04/16/21 History albuterol sulfate 90 mcg/actuation 2 puff INHALATION Q4H PRN 04/16/21 04/16/21 History aerosol inhaler calcium carbonate 500 mg (1,250 1 tab PO HS 04/16/21 04/16/21 History mg)-vitamin D3 125 unit tablet docusate sodium 100 mg capsule 100 mg PO BID 04/16/21 04/16/21 History eflornithine 13.9 % topical cream See Rx Instructions .ROUTE .COMPLEX 04/16/21 04/16/21 History (Vaniqa) polyethylene glycol 3350 17 17 g PO DAILY 04/16/21 04/16/21 History gram/dose oral powder (Miralax) psyllium husk 3.4 gram/5.4 gram 1 tbsp PO DAILY 04/16/21 04/16/21 History oral powder (Metamucil) trazodone 50 mg tablet 50 mg PO HS 04/16/21 04/16/21 History zinc 25 mg tablet 25 mg PO DAILY 04/16/21 04/16/21 History aspirin 81 mg chewable tablet 81 mg PO DAILY #30 tab 04/18/21 Rx (Children's Aspirin) atorvastatin 40 mg tablet (Lipitor) 40 mg PO HS #30 tab 04/18/21 Rx Past Med/Surg History Medical History Breast cancer Constipation 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) Primary insomnia Tear of meniscus of right knee Vestibular neuronitis Surgical History History of hysterectomy endometrial hyperplasia History of mastectomy Family History (Updated 04/16/21 @ 18:34 by Lissette Mercedes PA-C) Mother Hypertension Father Hypertension Dementia Social History Smoking Status: Never smoker Second Hand Exposure: No; Hx Alcohol Use: No Hx Substance Use: No Preferred Language: Nigerien Communication Ability: Effective Lap Welder Required: No Beliefs That Will Affect Care: None and Synagogue Current Living Situation: Alone Current Living Situation Comment: alone, single story home Feels Safe at Home: Yes Safety Concerns: Feels Safe At This Time Assistive Devices: Walker Assistive Devices Comment: reading glasses Review of Systems Review of Systems: All systems reviewed & are unremarkable except as noted in HPI & below Constitutional: + fatigue and + insomnia; no fever and no chills Eyes: no diplopia, not seeing flashes and no worsening vision Ear, Nose, Mouth, Throat: no nasal congestion, no nasal discharge, no sore throat and no dysphagia Respiratory: no cough, no chest congestion and no wheezing Cardiovascular: + lightheadedness; no chest pain, no palpitations, no syncope and no edema Gastrointestinal: + bloating and + constipation; no nausea and no vomiting Genitourinary: no dysuria, no urinary frequency and no hematuria Musculoskeletal: no back pain and no neck pain Integumentary: no rash and no erythema Neurologic: as per Subjective / HPI Psychiatric: no depression and no anxiety Physical Exam Constitutional: well developed and well nourished; no acute distress Eyes: PERRL, conjunctivae normal, anicteric sclerae normal accommodation and EOM intact bilaterally Neck: trachea midline Respiratory: no respiratory distress and no labored breathing Auscultation: lungs clear to auscultation bilaterally; no rales, no rhonchi and no wheezes Cardiovascular: Rate/Rhythm: regular rate and regular rhythm Heart Sounds: no gallop, no murmur and no cardiac rub Vessels: dorsalis pedis pulses present and radial pulses present; no JVD and no carotid bruit Extremities: normal capillary refill; no edema Gastrointestinal (Abdomen): Inspection/Auscultation: normal bowel sounds; abdomen not distended Percussion/Palpation: abdomen soft; abdomen nontender Musculoskeletal: Head/Neck/Chest: normocephalic, head atraumatic and neck miner pple Skin: no rashes and no jaundice Neurologic: moves all extremities; no focal motor deficits and not confused Speech / Cognition: no expressive aphasia and normal cognition Motor/Sensory: no tremor, normal movement and no fasciculations Psychiatric: A+Ox3, euthymic affect Results & Data Results & Data ([facility]) Vital Signs (Past 12 Hours) Vital Signs Temp Pulse Pulse Resp BP BP Pulse Ox 04/16/21 16:30 65 18 156/73 H 98 04/16/21 15:30 67 17 145/90 H 98 04/16/21 12:33 72 14 96 04/16/21 12:24 69 16 94 04/16/21 12:21 97 04/16/21 12:17 36.6 C 73 16 208/108 H 97 Laboratory Results Laboratory Results - last 24 hr 04/16/21 04/16/21 04/16/21 12:42 12:42 15:43 WBC 6.37 RBC 4.50 Hgb 14.7 Hct 42.8 MCV 95.1 MCH 32.7 MCHC 34.3 RDW Std Deviation 43.8 RDW Coeff of Frannie 12.7 Plt Count 318 MPV 10.2 Immature Gran % (Auto) 0.2 Neut % (Auto) 61.1 Lymph % (Auto) 27.3 [place] % (Auto) 9.4 Eos % (Auto) 1.7 Baso % (Auto) 0.3 Neut # (Auto) 3.89 Lymph # (Auto) 1.74 [place] # (Auto) 0.60 H Eos # (Auto) 0.11 Baso # (Auto) 0.02 Immature Gran # (Auto) 0.01 Sodium 139 Potassium 3.8 Chloride 103 Carbon Dioxide 28 Anion Gap 7.0 BUN 9 Creatinine 0.85 Est Cr Clr Drug Dosing 49.4 Est GFR ( Amer) 75.0 Est GFR (Non-Af Amer) 64.7 BUN/Creatinine Ratio 10.2 Glucose 132 H Calcium 9.3 Total Bilirubin 0.6 AST 26 ALT 36 Alkaline Phosphatase 95 Troponin I < 0.015 Total Protein 7.5 Albumin 3.7 Globulin 3.8 Albumin/Globulin Ratio 1.0 Urine Color Yellow Urine Appearance Clear Urine pH 8.0 H Ur Specific [place] 1.005 Urine Protein Negative Urine Glucose (UA) Negative Urine Ketones Negative Urine Blood Negative Urine Nitrite Negative Urine Bilirubin Negative Urine Urobilinogen Negative Ur Leukocyte Esterase Trace H Urine WBC (Auto) 1-5 Urine RBC (Auto) 0-4 U Hyaline Cast (Auto) 0 U Epithel Cells (Auto) 5-10 H Urine Bacteria (Auto) Negative COVID-19 Eval Order SARS-CoV-2 (PCR) 04/16/21 04/16/21 17:30 17:30 WBC RBC Hgb Hct MCV MCH MCHC RDW Std Deviation RDW Coeff of Frannie Plt Count MPV Immature Gran % (Auto) Neut % (Auto) Lymph % (Auto) [place] % (Auto) Eos % (Auto) Baso % (Auto) Neut # (Auto) Lymph # (Auto) [place] # (Auto) Eos # (Auto) Baso # (Auto) Immature Gran # (Auto) Sodium Potassium Chloride Carbon Dioxide Anion Gap BUN Creatinine Est Cr Clr Drug Dosing Est GFR ( Amer) Est GFR (Non-Af Amer) BUN/Creatinine Ratio Glucose Calcium Total Bilirubin AST ALT Alkaline Phosphatase Troponin I Total Protein Albumin Globulin Albumin/Globulin Ratio Urine Color Urine Appearance Urine pH Ur Specific [place] Urine Protein Urine Glucose (UA) Urine Ketones Urine Blood Urine Nitrite Urine Bilirubin Urine Urobilinogen Ur Leukocyte Esterase Urine WBC (Auto) Urine RBC (Auto) U Hyaline Cast (Auto) U Epithel Cells (Auto) Urine Bacteria (Auto) COVID-19 Eval Order Covid19 at [facility] SARS-CoV-2 (PCR) NEGATIVE Diagnostic Findings CT Head 04/16/21 - IMPRESSION: There is no hemorrhage, mass effect, or evidence of acute territorial ischemia by CT criteria. Medications Administered Discontinued Medications Prochlorperazine (Compazine) 2 mls @ 1 mls/min IV ONE ONE Stop: 04/16/21 15:10 Last Admin: 04/16/21 15:35 Dose: 1 mls/min Documented by: [id number] Meclizine HCl (Meclizine Hcl 25 Mg Tab) 25 mg PO NOW STA Stop: 04/16/21 15:10 Last Admin: 04/16/21 15:34 Dose: 25 mg Documented by: [id number] Supervising Physician Co-Signing Physician Notes Pt seen and examined by me, care coordinated with Siobhan Mercedes PA-C. Pls refer to her note above for further detail. Pt is an 81 y/o female with hx of breast cancer (s/p mastectomy and chemo), peripheral neuropathy, constipation, and recent primary insomnia who presents with sudden onset of lightheadedness this morning. Initial BP in the ED was markedly elevated with systolic >200. Pt denies prior history of HTN although recent BPs outpatient have been "borderline elevated" per PCP notes.Notably, in the past diagnosed with vestibular neuronitis and has learned to manage with exercises at home when it flares up. In addition, she is sleeping ~2 hrs most nights, issue is with staying asleep. Most recently she has been taking trazodone 100 mg, with which she has seen small improvements. Currently she is laying in bed in NAD. Pt's daughter at the bedside and also helps provide history. Pt is awake alert oriented and answering questions appropriately. Speech is fluent and there is no facial asymmetry. Pt moves extremities and there is no sensory loss noted. Lungs are clear to auscultation b/l. Heart sounds regular. Abdomen soft, nontender, nondistended. Skin w/o any rashes or lesions, warm, and dry. Will obtain CTA head and neck given hx of M1 right MCA stenosis. Will closely monitor on tele and manage hypertension as above. PT/ Raza. May need neurological eval. Suad Minor MD (1) Hypertension Hypertension type: unspecified Qualified Code(s): I10 - Essential (primary) hypertension
[2021-04-16] MEDS ORDERED: hydrALAZINE HCL 20 MG/ML VIAL IV PRN (18:57)
[2021-04-16] MEDS ORDERED: MECLIZINE 12.5 MG TAB PO PRN (18:57)
[2021-04-16] MEDS ORDERED: ACETAMINOPHEN 325 MG TAB PO PRN (21:04)
[2021-04-16] MEDS ORDERED: OPTIRAY 320 125ml IV ONE (21:36)
[2021-04-16] MEDS ORDERED: PNEUMOCOCCAL POLYSACCHARIDES 25 MCG/0.5 ML VIAL/SYR IM ONE (22:00)
[2021-04-16] MEDS: traZODone HCL 50 MG TAB PO SCH (22:47)
[2021-04-16] MEDS: DOCUSATE SODIUM 100 MG CAP PO SCH (22:47)
[2021-04-17] MEDS ORDERED: hydrALAZINE HCL 20 MG/ML VIAL IV PRN (04:17)
--- NOTE | 2021-04-17 07:15 | CT Scan Report ---
CT angio head w con, CT angio neck with con CLINICAL HISTORY: 81 years-old Female with dizziness, eval vasculature. Acute dizziness with eleva pk blood pressure COMPARISON STUDY: Head CT of same day, MRA head 08/15/2018, CTA neck 08/14/2018 TECHNIQUE: Unenhanced following the IV administration of 120 cc of Optiray, CT angiogram of the head and neck was performed from the aortic arch to the skull vertex. Images are reviewed in the axial, sagittal, and coronal pl anes. 3-D MIPS images are created and assessed. IV contrast was administered without complication. Al l measurements were obtained according to NASCET criteria. A dose lowering technique was utilized adh ering to the principles of ALARA. CT DOSE: 457.02 mGy.cm FINDINGS: Three-vessel morphology of the thoracic aortic arch. Patency of the innominate and imaged s ubclavian arteries. The common carotid arteries are widely patent. Mild atherosclerotic plaque of the right carotid bulb results in less than 50% stenosis. There is tortuosity of the bilateral internal carotid arteries which are patent. There is mild multifocal luminal narrowing of the middle cerebral arteries with a focal area of 50% luminal narrowing involving the M1 segment on image 93 series 3. Th e anterior cerebral arteries are patent. There is mild multifocal luminal narrowing of the codominant vertebral arteries with areas of luminal irregularity present within the bilateral V2 segment at the level of C2. Short segment mid basilar fenestration. origin of the right posterior cerebral ar juvenal. The basilar and posterior cerebral arteries are patent. The cerebral venous sinuses are patent. No abnormal intracranial enhancement. Pleural parenchymal scarring of the lung apices redemonstrated. There is no pneumothorax. There are a few subcentimeter hypodense thyroid nodules. Unremarkable soft tissues. Degenerative changes of the cervical spine. IMPRESSION: 1. 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 2. Mild atherosclerosis without aneurysm, dissection, high-grade stenosis or arterial occlusion. ACT 112: Negative or not required by law. The above report was generated using voice recognition software. It may contain grammatical, syntax o r spelling errors. Electronically signed by: Terry Rodriguez M.D. 04/17/2021 7:14 AM
[2021-04-17] MEDS: ENOXAPARIN INJ 40 MG/0.4 ML SYR SQ SCH (07:57)
[2021-04-17] MEDS: DOCUSATE SODIUM 100 MG CAP PO SCH ×2 (07:57→21:17)
[2021-04-17] MEDS: POLYETHYLENE (MIRALAX) 17 GM PACK PO SCH (07:57)
[2021-04-17] MEDS: ATORVASTATIN 20 MG TAB PO SCH (07:57)
--- NOTE | 2021-04-17 08:30 | Electrocardiogram Report ---
Test Reason : Blood Pressure : / mmHG Vent. Rate : 072 BPM Atrial Rate : 072 BPM P-R Int : 164 ms QRS Dur : 140 ms QT Int : 430 ms P-R-T Axes : 030 -64 071 degrees QTc Int : 470 ms Normal sinus rhythm Left axis deviation Left ventricular hypertrophy with QRS widening and repolarization abnormality Abnormal ECG When compared with ECG of 16-APR-2021 12:21, No significant change Confirmed by Raffi Fernandez ([id number]) on 04/17/2021 8:29:44 AM Referred By: REFERRED SELF Confirmed By:Raffi Fernandez
--- NOTE | 2021-04-17 17:37 | Hospitalist Progress Note ---
Date of Service April 17, 2021 Assessment & Plan (1) Ambulatory dysfunction: Plan: Ambulatory dysfunction Imaging studies showed no acute findings PT OT evaluated Fall precautions (2) Dizziness: Plan: Dizziness Orthostatic hypotension -CT Head:No acute intracranial abnormality or calvarial fracture. 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 Mild atherosclerosis without aneurysm, dissection, high-grade stenosis or arterial occlusion. -MRI Brain Pending Meclizine as needed Neurology consulted Dizziness likely secondary to orthostatic hypotension Avoid any meds contributing to hypotension Right middle cerebral artery stenosis Also noted on prior imaging Started on aspirin 81 mg daily Continue statin Await for neurology recommendations ECHO pending (3) Primary insomnia: Plan: Continue trazodone (4) Hypertension: Plan: BP Variable Monitor for now (5) Constipation: Plan: Continue home meds Plan: DVT Px: Lovenox SQ Code status: full code Admission and Anticipated Discharge Date Admission Date: April 16, 2021 Subjective Patient is seen and examined at bedside States having chronic insomnia Dizziness improved Denies any headache, chest pain, dyspnea, nausea, abdominal pain Family at bedside Review of Systems Review of Systems: All systems reviewed & are unremarkable except as noted in Subjective Physical Exam Physical Exam: Physical Exam: Vitals signs as noted above General Appearance:Moderately built and nourished, no apparent distress Head: normocephalic, Atraumatic Eyes: normal inspection, EOMI Neck: supple, Trachea midline Respiratory/Chest: Normal breath sounds, CTA Cardiovascular: S1, S2, No murmur Abdomen/GI:Soft, Non tender, Bowel sounds present Extremities/Musculoskeletal:normal inspection, 1+ B/L LE edema Neurologic/Psych:AAOX3, grossly no focal neurological deficits Skin: normal color, warm Results & Data Results & Data ([facility]) Vital Signs (Past 12 Hours) Vital Signs Temp Pulse Resp BP Pulse Ox 04/17/21 14:52 36.8 C 80 16 98/55 L 98 04/17/21 07:34 36.7 C 71 18 129/66 93 (1) Hypertension Hypertension type: unspecified Qualified Code(s): I10 - Essential (primary) hypertension
--- NOTE | 2021-04-17 17:58 | Consultation Report ---
DATE OF SERVICE: 04/17/2021 REASON FOR CONSULTATION: "Dizziness." HISTORY OF PRESENT ILLNESS: The patient is an 81-year-old right-handed female with a history of monica st cancer, degenerative joint disease and a tear of the meniscus of her right knee. On this backgrou nd, other than recent insomnia, she has been in her usual state of good health. This morning while s eated, she noted a difficult to describe feeling on the left side of her head and a pop in the left u pper side of her head. She would not describe that as a headache. She began to feel vaguely "dizzy, " but she denies vertigo, visual dimming, hearing muffling, and it is unclear to this examiner if she was truly dizzy. Her left face became numb and tingly and to a lesser extent the right face. When s he attempted to ambulate, she was unsteady, although not unilaterally so. No change in vision, doubl e vision, field cut, dysarthria, nausea, vomiting, unilateral weakness or numbness were noted. There were no otologic symptoms such as ear pain, ringing or hearing loss. There was no chest pain, palpi tation or shortness of breath. She has not recently been ill. None of her medicines are new or akins ged in dose. Several years ago, the patient was diagnosed with vestibular neuronitis. She denies vertigo at that time as well and indicates that her only symptom was unsteadiness. Diagnostics are notable for a CTA of the head and neck showing atherosclerosis and mild M1 stenosis. That would be right M1 stenosis. CT of the head shows chronic bilateral vascular changes. Her lab data was notable for a white coun t of 6.37, H and H are normal, platelet count 318. Chemistry profile unremarkable. Blood sugar 132 , nonfasting. Urinalysis notable for trace leukocyte esterase and 5 to 10 epithelial cells. COVID n egative. Her electrocardiogram showed normal sinus rhythm, left axis deviation, LVH with QRS widenin g and repolarization abnormality. On admission, the patient was initially fairly moderately hyperten sive. Earlier in the day, her blood pressure had been relatively normotensive. She was given hydrala zine in the Emergency Room. Her blood pressure this afternoon was 98/55, although it is unclear to t his examiner whether or not she received another dose of an antihypertensive or hydralazine. In general, she does not get lightheaded with standing. She has no personal history of stroke or tra nsient ischemic attack. She remotely had breast cancer. No history of DVT or PE. No history of rhe umatic fever. No family history of stroke. PAST MEDICAL HISTORY: As above, additionally constipation, insomnia. PAST SURGICAL HISTORY: Hysterectomy, mastectomy. FAMILY HISTORY: Mother -- hypertension. Father -- hypertension, dementia. SOCIAL HISTORY: Nonsmoker. The patient drinks wine. REVIEW OF SYSTEMS: Per hospitalist. ALLERGIES: BACITRACIN/NEOMYCIN/POLYMYXIN AND MORPHINE. HOME MEDICATIONS: Vitamin C, magnesium oxide, multiple vitamins, selenium, albuterol, atorvastatin, calcium carbonate, docusate, Vaniqa, MiraLax, psyllium, trazodone 50 and zinc. The patient denied to this examiner that she took antiplatelet therapy at home. PHYSICAL EXAMINATION: Most recent vitals are 98/55, 80, 16, 36.8, 98% on room air. The patient is a wake and alert. She is an excellent historian. Speech and language are normal. There were no carot id bruits, no heart murmurs. Heart is regular rate and rhythm. Pupils are postsurgical. Optic nerv es are unremarkable. There are normal webster, motility without nystagmus. There is normal facial se nsation and facial symmetry. Tongue is midline. Motor 5/5, no drift. Normal rapid alternating move ments. Symmetric reflexes, downgoing toes. Mmrsth-gp-dlgl and mtvg-co-kgdt are normal. There is no dysdiadochokinesia. Gait and tandem are normal. Romberg is mildly positive. Provocative head jennifer uvers are negative. Reflexes symmetric. Toes are downgoing. Intact to light touch and temperature bilaterally. IMPRESSION AND PLAN: Vaguely described left head pain with query bilateral facial numbness and unste adiness without vertigo or lightheadedness suggestive of a transient ischemic attack. Due to the dur ation, which was at least 7 hours, suspect that if this was central and ischemic, we will see somethi ng on an MRI. We would perform the MRI with and without contrast given history of breast cancer. Wo uld recommend starting aspirin 81 mg. If a stroke is confirmed, we would consider the addition of Pl avix. Recommend an echocardiogram, cardiac monitoring and checking her LDL. Unclear whether or not the hypertension was reactive or idiologic. Recommend monitoring. It is uncl ear to me whether or not this isolated low blood pressure was related to any of her medications or an tihypertensives. In general, trazodone can cause orthostasis and so if her blood pressures are readi ng low, consider discontinuing. Would recommend checking orthostatic blood pressures. We will follow with you. Job ID: [id number]
[2021-04-17] MEDS ORDERED: GADOBUTROL 65ML VIAL IV ONE (18:13)
[2021-04-17] MEDS: ASPIRIN 81 MG CHEW PO SCH (18:44)
--- NOTE | 2021-04-17 19:03 | Magnetic Resonance Report ---
MR brain wo/w con CLINICAL HISTORY: Dizziness TECHNIQUE: Multiplanar and multisequence MR images of the brain were obtained prior to and following administration of gadolinium contrast. Comparison: Prior MRI brain 08/15/2018 FINDINGS: No abnormal restricted diffusion is identified. Foci of T2 and FLAIR hyperintensity are noted in the paraventricular areas consistent with chronic small vessel ischemic disease. Ex vacuo ventriculomegal y and sulcal enlargement is noted compatible with diffuse encephalomalacia. There is no evidence of a cute intraparenchymal hemorrhage. No extra axial fluid collections are seen. There are no masses, mas s effect, or midline shift. No abnormal enhancement is seen. The corpus callosum, pituitary gland, a nd cerebellar tonsils appear grossly unremarkable. Flow voids of the major intracranial arterial vessels are identified. The imaged portions of the para nasal sinuses, mastoid air cells, and orbits are unremarkable. IMPRESSION: No acute abnormalities. ACT 112: Negative or not required by law. Electronically signed by: Eber Gracia M.D. 04/17/2021 7:02 PM
[2021-04-17] MEDS: traZODone HCL 50 MG TAB PO SCH (21:17)
[2021-04-18 03:24] VITALS: TEMP 98.4
[2021-04-18] MEDS: ENOXAPARIN INJ 40 MG/0.4 ML SYR SQ SCH (07:31)
[2021-04-18] MEDS: ASPIRIN 81 MG CHEW PO SCH (07:32)
[2021-04-18] MEDS: POLYETHYLENE (MIRALAX) 17 GM PACK PO SCH (07:32)
[2021-04-18] MEDS: ATORVASTATIN 20 MG TAB PO SCH (07:32)
[2021-04-18] MEDS: DOCUSATE SODIUM 100 MG CAP PO SCH (07:32)
[2021-04-18 11:14] VITALS: BP 164/75; O2SAT 97
--- NOTE | 2021-04-18 12:45 | Neurology Progress Note ---
Date of Service April 18, 2021 Assessment & Plan (1) Ambulatory dysfunction: Plan: 1. MRI - no stroke 2. CTA head/neck- no occlusion or significant narrowing 3. optimize HTN HLD, DM LDL <70 4. PT/OT for discharge needs 5. add aspirin 81 mg daily 6. TTE- no ASD follow up with neurology as needed. (2) Dizziness: Plan: 1. PT/OT for Raza maneuver Admission and Anticipated Discharge Date Admission Date: April 16, 2021 Supervising Physician Co-Signing Physician Notes I have seen and discussed above patient with Dr Ester Breen, neurology Subjective Emearld is an 81 year old female with a PMH -breast cancer (s/p mastectomy and chemo), peripheral neuropathy, constipation, and recent primary insomnia who presents to the ED with sudden onset of lightheadedness this morning. She got up in the morning feeling her usual, did her stretching exercises, got dressed, ate breakfast and afterwards had the sudden onset of "fuzziness" on the left side of her head then dizziness that she describes as being very lightheaded. This lightheadedness was so severe that they called EMS and brought her to [facility] 04/17/2021 ED via ambulance. Initial BP in the ED was markedly elevated with systolic >200.She denies any prior history of HTN although recent BPs outpatient have been "borderline elevated". She had an episode of dizziness in 2019 but reports that was more vertiginous than current symptoms. She was ultimately diagnosed with vestibular neuronitis and has learned to manage with exercises at home when it flares up. She rates symptoms at 5-6/10 at rest, worse with sitting up or ambulating.She was given compazine and meclizine without significant relief. She has had several months of primary insomnia for which she has tried multiple medicines, both prescription and OTC. She has an appt with sleep med in June but is concerned that this is not soon enough as lack of sleep is impacting her ability to function. She is sleeping ~2 hrs most nights, issue is with staying asleep. Most recently she has been taking trazodone 100 mg, with which she has seen small improvements. Physical Exam Physical Exam: no exam patient was discharged before seen today Results & Data ([facility]) Vital Signs (Past 12 Hours) Vital Signs Temp Pulse Resp BP Pulse Ox 04/18/21 11:13 36.9 C 64 20 164/75 H 97 04/18/21 03:23 36.9 C 62 18 144/64 H 94 Laboratory Results no abnormal labs Diagnostic Findings TTE- EF 55-60% no ASD CT head-There is no hemorrhage, mass effect, or evidence of acute territorial ischemia by CT criteria. CTA head/neck-50% stenosis of the right M1 segment of the middle cerebral artery is unchanged from the 08/14/2018 study. Mild atherosclerosis without aneurysm, dissection, high-grade stenosis or arterial occlusion. MRI brain-No acute abnormalities.
--- NOTE | 2021-04-18 13:33 | Hospitalist Progress Note ---
Date of Service April 18, 2021 Assessment & Plan (1) Ambulatory dysfunction: Plan: Ambulatory dysfunction Imaging studies showed no acute findings PT OT evaluated: Recommends return home Fall precautions (2) Dizziness: Plan: Dizziness Orthostatic hypotension Suspected TIA-POA -CT Head:No acute intracranial abnormality or calvarial fracture. 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 Mild atherosclerosis without aneurysm, dissection, high-grade stenosis or arterial occlusion. -MRI Brain:No acute abnormalities. Positive Orthostatics Meclizine as needed Appreciate Neurology Input Started on Aspirin 81mg daily Increase Lipitor to 40mg daily Needs ZIO patch as outpatient Needs follow up with Neurology upon discharge Right middle cerebral artery stenosis Also noted on prior imaging Continue aspirin, statin as above (3) Primary insomnia: Plan: On trazodone Advised to follow up with PCP (4) Hypertension: Plan: BP Variable Monitor (5) Constipation: Plan: Continue home meds Plan: DVT Px: Lovenox SQ Code status: full code Admission and Anticipated Discharge Date Admission Date: April 16, 2021 Subjective Patient is seen and examined at bedside Doing well today sitting in chair during my encounter No recurrence of symptoms Denies any dizziness, headache, chest pain, dyspnea, nausea, abdominal pain Review of Systems Review of Systems: All systems reviewed & are unremarkable except as noted in Subjective Physical Exam Physical Exam: Physical Exam: Vitals signs as noted above General Appearance:Moderately built and nourished, no apparent distress Head: normocephalic, Atraumatic Eyes: normal inspection, EOMI Neck: supple, Trachea midline Respiratory/Chest: Normal breath sounds, CTA Cardiovascular: S1, S2, No murmur Abdomen/GI:Soft, Non tender, Bowel sounds present Extremities/Musculoskeletal:normal inspection, 1+ B/L LE edema Neurologic/Psych:AAOX3, grossly no focal neurological deficits Skin: normal color, warm Results & Data Results & Data ([facility]) Vital Signs (Past 12 Hours) Vital Signs Temp Pulse Resp BP Pulse Ox 04/18/21 11:13 36.9 C 64 20 164/75 H 97 04/18/21 03:23 36.9 C 62 18 144/64 H 94 (1) Hypertension Hypertension type: unspecified Qualified Code(s): I10 - Essential (primary) hypertension
--- NOTE | 2021-04-18 13:48 | Discharge Summary ---
Date of Service April 18, 2021 Admission HPI Per Admitting Provider This is an 81 y/o female with a PMH of breast cancer (s/p mastectomy and chemo), peripheral neuropathy, constipation, and recent primary insomnia who presents to the ED with sudden onset of lightheadedness this morning. Pt reports that she got up this morning feeling her usual, did her stretching exercises, got dressed, ate breakfast and afterwards had the sudden onset of "fuzziness" on the left side of her head then dizziness that she describes as being very lightheaded. Denies vertigo sensation. This lightheadedness was so severe that they called EMS and pt was brought to the ED via ambulance. Initial BP in the ED was markedly elevated with systolic >200. Pt denies prior history of HTN although recent BPs outpatient have been "borderline elevated" per PCP notes. Pt denies associated weakness, facial droop, slurred speech, vision changes, or change in chronic numbness/tingling in feet related to neuropathy. She had an episode of dizziness in 2019 but reports that was more vertiginous than current symptoms. She was ultimately diagnosed with vestibular neuronitis and has learned to manage with exercises at home when it flares up. She rates symptoms at 5-6/10 at rest, worse with sitting up or ambulating. She failed ambulatory trial x 2 in the ED so she has been referred for admission. She was given compazine and meclizine without significant relief. Pt also notes several months of primary insomnia for which she has tried multiple medicines, both prescription and OTC. She has an appt with sleep med in June but is concerned that this is not soon enough as lack of sleep is impacting her ability to function. She is sleeping ~2 hrs most nights, issue is with staying asleep. Most recently she has been taking trazodone 100 mg, with which she has seen small improvements. Admission Exam Per Admitting Provider Physical Exam Constitutional: well developed and well nourished; no acute distress Eyes: PERRL, conjunctivae normal, anicteric sclerae normal accommodation and EOM intact bilaterally Neck: trachea midline Respiratory: no respiratory distress and no labored breathing Auscultation: lungs clear to auscultation bilaterally; no rales, no rhonchi and no wheezes Cardiovascular: Rate/Rhythm: regular rate and regular rhythm Heart Sounds: no gallop, no murmur and no cardiac rub Vessels: dorsalis pedis pulses present and radial pulses present; no JVD and no carotid bruit Extremities: normal capillary refill; no edema Gastrointestinal (Abdomen): Inspection/Auscultation: normal bowel sounds; abdomen not distended Percussion/Palpation: abdomen soft; abdomen nontender Musculoskeletal: Head/Neck/Chest: normocephalic, head atraumatic and neck supple Skin: no rashes and no jaundice Neurologic: moves all extremities; no focal motor deficits and not confused Speech / Cognition: no expressive aphasia and normal cognition Motor/Sensory: no tremor, normal movement and no fasciculations Psychiatric: A+Ox3, euthymic affect Principal Diagnosis Possible transient ischemic attack Orthostatic hypotension Insomnia Discharge Data Allergies Allergy/AdvReac Type Severity Reaction Status Date / Time bacitracin Allergy Unknown SWELLING Verified 04/16/21 13:44 AT SITE neomycin Allergy Unknown SWELLING Verified 04/16/21 13:44 AT SITE polymyxin B Allergy Unknown SWELLING Verified 04/16/21 13:44 AT SITE morphine AdvReac Unknown HEADACHE Verified 04/16/21 13:44 Consultations 04/16/21 17:36 ED Decision to Admit Stat 04/17/21 15:56 Consult Neurology Routine Ordered Studies 04/16/21 12:24 CT head/brain wo con Stat 04/16/21 21:04 CT angio head w con Routine CT angio neck with con Routine 04/17/21 15:56 MR brain wo/w con Routine Hospital Course (1) Ambulatory dysfunction: Ambulatory dysfunction Imaging studies showed no acute findings PT OT evaluated: Recommends return home Fall precautions (2) Dizziness: Dizziness Orthostatic hypotension Suspected TIA-POA -CT Head:No acute intracranial abnormality or calvarial fracture. 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 Mild atherosclerosis without aneurysm, dissection, high-grade stenosis or arterial occlusion. -MRI Brain:No acute abnormalities. Positive Orthostatics Meclizine as needed Appreciate Neurology Input Started on Aspirin 81mg daily Increase Lipitor to 40mg daily Needs ZIO patch as outpatient Needs follow up with Neurology upon discharge Right middle cerebral artery stenosis Also noted on prior imaging Continue aspirin, statin as above (3) Primary insomnia: On trazodone Advised to follow up with PCP (4) Hypertension: BP Variable Monitor (5) Constipation: Continue home meds DVT Px: Kayceenox SQ Code status: full code Total Time Total Time Spent Total Time Spent (In Minutes): 40 minutes Discharge Plan Discharge Items Patient Disposition: Home - Self-Care Reason For Visit: AMBULATORY DYSFUNCTION, ELEVATED BP Discharge Diagnosis: Possible transient ischemic attack Orthostatic hypotension Insomnia Activity: Per Instructions section Exercise/Sports: Gradually increase as tolerated Non-emergency contact: Primary Care Provider and Neurologist Call non-emergency contact if: you have any medication questions, your symptoms worsen, your pain is concerning for you and you have a fever Follow-up/Referrals: Apolonia Cole MD [Primary Care Provider] - (Date & Time 04/22/2021 5:00 PM Provider Saud Ornelas PA-C Department General Internal Medicine [facility] ) Diet: Heart Healthy Addtl Attending Provider Instructions: Follow-up with your primary care physician on 04/22/2021 5:00 PM Follow-up with your neurologist Dr. Ester Breen/Ester Garcia PA-C in 4 weeks --Get ZIO patch arranged as outpatient as recommended by your neurologist for rule out arrhythmias. --- Use compression stockings as advised --Follow-up with your primary care physician for further management of your blood pressure, insomnia. Seek immediate medical attention if your symptoms reoccur or worsen Please take all medications as instructed on discharge list below. Please call if you have any questions or problems. You can reach a [facility] hospitalist on duty at [facility] 24 hours a day by calling [phone] Risk Factors for Stroke: You can reduce your chances of stroke by working with your medical provider to adopt a healthy lifestyle. Some specific ways to lower your chance of stroke are: * If you are a smoker, now is the time to stop smoking cigarettes * If you are diabetic, improve the control of your blood sugars * Avoid excessive amounts of alcohol * Control high blood pressure * Lose weight if you are overweight * Be sure to lead an active lifestyle * Eat a healthy diet low in salt, cholesterol and fat You should know about other risk factors for stroke that you are unable to control. These include: * Age 55 years or older * Male gender * Certain racial groups: , or / * Family History of Stroke, Mini stroke or Heart Attack * Sickle Cell Disease Follow Up: It is important for you to keep your follow up appointments with your medical [address]. Who to Call and When: Medical Emergencies: Call 911 immediately if you experience any of the following warning signs and symptoms of Stroke: * Sudden numbness or weakness of the face, arm or leg, especially on one side of the body * Sudden confusion, trouble speaking or understanding * Sudden trouble seeing in one or both eyes * Sudden trouble walking, dizziness, loss of balance or coordination * Sudden severe headache with no cause Do not delay calling 911 if you experience any warning signs or symptoms of a stroke. Delay in seeking medical attention may affect what treatments can be given to you. . Pending Studies at Discharge: No Stand-Alone Forms: My [facility] [place], Smoking Cessation Medications and DC Order Prescriptions: New aspirin [Children's Aspirin] 81 mg Tablet,Chewable 81 mg PO DAILY Qty: 30 RF: 1 atorvastatin [Lipitor] 40 mg tablet 40 mg PO HS Qty: 30 RF: 1 Continued multivitamin Tablet 1 tab PO QAM RF: 0 ascorbic acid (vitamin C) [Vitamin C] 1,000 mg Tablet 1,000 mg PO BID RF: 0 selenium 50 mcg Tablet 100 mcg PO QAM RF: 0 magnesium oxide 400 mg magnesium Tablet 400 mg PO HS RF: 0 trazodone 50 mg tablet 50 mg PO HS RF: 0 calcium carbonate-vitamin D3 [Calcium 500 + D (D3)] 500 mg(1,250mg) -125 unit Tablet 1 tab PO HS RF: 0 zinc 25 mg Tablet 25 mg PO DAILY RF: 0 docusate sodium 100 mg Capsule 100 mg PO BID RF: 0 Vaniqa 13.9 % cream See Rx Instructions .ROUTE .COMPLEX RF: 0 polyethylene glycol 3350 [Miralax] 17 gram/dose Powder 17 g PO DAILY RF: 0 albuterol sulfate 90 mcg/actuation HFA aerosol inhaler 2 puff INHALATION Q4H PRN (Reason: Shortness Of Breath Or Wheezing) RF: 0 Metamucil 3.4 gram/5.4 gram Powder 1 tbsp PO DAILY RF: 0 Discontinued atorvastatin 20 mg tablet 20 mg PO QAM RF: 0 Discharge Orders: Discharge Order (Routine); Ordered 04/18/21 Ordered By: Beto Lucas Admission Data Admit Date/Time: 04/16/21 18:52 Attending Provider: Beto Lucas Admit Provider: Junior Minor Primary Care Provider: Apolonia Cole Other Providers: Junior Minor ; Ester Breen
[2021-04-18 14:23] VITALS: PULSE 63
== END 2021-04-18 14:35 | disposition home or self-care (01) ==
LOC: ED 12:09 → 2N 12:09 → SUATTDRO 18:52 → 2N 20:31